=== PATIENT | male | born 1970 | race Two or more races ===

== ENCOUNTER 2025-08-05 12:42 | Emergency (ER) | payer MEDICAID ==
[~2025-08-05] VITALS: Ht 180.3 cm; Wt 72.0 kg
[2025-08-05 13:12] LABS: Hematocrit 41.0 % (41.0-53.0); Hemoglobin 14.1 g/dL (13.5-17.5); Mean Corpuscular Hemoglobin 30.2 pg (28.0-32.0); Mean Corpuscular Volume 87.8 fL (80.0-100.0); Nucleated Red Blood Cells % 0.1 %
[2025-08-05 13:17] LABS: Chloride 100 mmol/L (98-107); Potassium 3.8 mmol/L (3.5-5.1)
[2025-08-05 13:18] LABS: Anion Gap 9 (5-15); Carbon Dioxide 26 mmol/L (20-31)
[2025-08-05 13:22] LABS: Calcium 8.6 mg/dL (8.7-10.4); Sodium 135 mmol/L (136-145)
[2025-08-05 13:23] LABS: BUN/Creatinine Ratio 17.1 (10.0-20.0); Blood Urea Nitrogen 13 mg/dL (9-23); Glucose 114 mg/dL (74-106)
--- NOTE | 2025-08-05 13:23 | ED.PDOC ---
HPI Comments 55y M who presents to the ED for chief complaint of chest pain. Pt states he has been having chest pain for the past 2x days. Pt states his pain is substernal, constant, nonradiating, sharp in nature, rating the pain 9/10, with noted exacerbating pain with exertion and no relieving factors. Pt has associated nausea, chills, leg swelling, and shortness of breath. Pt states he otherwise has noted history of CHF and states is drug used with last use of Meth in the last 1x week with history of HIV. Pt has noted stable vitals in the ED. Pt denies any other symptoms. Chief Complaint: Chest Pain Time Seen by MD: 13:18 Reviewed Notes: Medications, Allergies Allergies: Coded Allergies: NO KNOWN ALLERGIES (Unverified , 08/05/25) Information Source: Patient Mode of Arrival: Ambulatory Brought in by: self Severity: Moderate Timing: Days Duration: Since onset Prehospital treatment: None Quality: Sharp Onset: At Rest, With Light Exertion Cardiac Risk Factors: None (CHF, ) PE Risk Factors: None History of: Similar pain in past Associated Signs and Symptoms: SOB, N/V, Other (leg swelling) Past Medical History PAST MEDICAL HISTORY: CHF, HIV Surgical History (Other): perforated ulcer Family History Family History: Reviewed,noncontributory to illness Social History Smoker: Cigarettes Alcohol: Unknown Drugs: Marijuana, Methamphetamine Lives In: Home Constitutional: reports: chills; denies: diaphoresis, fatigue, fever, malaise, sweats, weakness, others EENTM: denies: blurred vision, double vision, ear bleeding, ear discharge, ear drainage, ear pain, ear ringing, eye pain, eye redness, hearing loss, mouth pain, mouth swelling, nasal discharge, nose bleeding, nose congestion, nose pain, photophobia, tearing, throat pain, throat swelling, voice changes, others Respiratory: reports: shortness of breath; denies: cough, hemoptysis, ortho pnea, SOB at rest, SOB with excertion, stridor, wheezing, others Cardiovascular: reports: chest pain; denies: dizzy spells, diaphoresis, Dyspnea on exertion, edema, irregular heart beat, left arm pain, lightheadedness, palpitations, PND, syncope, others Gastrointestinal: reports: nausea, vomiting; denies: abdomen distended, abdominal pain, blood streaked bowels, constipated, diarrhea, dysphagia, diffic ulty swallowing, hematemesis, melena, poor appetite, poor fluid intake, rectal bleeding, rectal pain, others Genitourinary: denies: burning, dysuria, flank pain, frequency, hematuria, incontinence, penile discharge, penile sore, pain, testicle pain, testicle swelling, urgency, others Neurological: denies: dizziness, fainting, headache, left sided numbness, left sided weakness, numbness, paresthesia, pre-existing deficit, right sided numbness, right sided weakness, seizure, speech problems, tingling, tremors, weakness, others Musculoskeletal: denies: back pain, gout, joint pain, joint swelling, muscle pain, muscle stiffness, neck pain, others Integumetry: denies: bruises, change in color, change in hair/nails, dryness, laceration, lesions, lumps, rash, wounds, others Allergic/Immunocompromised: denies: Difficulty Healing, Frequent Infections, Hives, Itching, others Hematologic/Lymphatic: denies: anemia, blood clots, easy bleeding, easy bruising, swollen glands, others Endocrine: denies: excessive hunger, excessive sweating, excessive thirst, excessive urination, flushing, intolerance to cold, intolerance to heat, unexplained weight gain, unexplained weight loss, others Psychiatric: denies: anxiety, bipolar disorder, depression, hopeless, panic disorder, schizophrenia, sleepless, suicidal, others All Other Systems: Reviewed and Negative Physical Exam General Appearance: No Apparent Distress HEENT: Normal ENT Inspection, Pharynx Normal, TMs Normal Neck: Full Range of Motion, Non-Tender, Normal, Normal Inspection Respiratory: Chest Non-Tender, Lungs Clear, No Accessory Muscle Use, No Respiratory Distress, Normal Breath Sounds Cardiovascular: No Edema, No JVD, No Murmur, No Gallop, Normal Peripheral Puls es, Regular Rate/Rhythm Breast Exam: Deferred Gastrointestinal: No Organomegaly, Non Tender, No Pulsatile Mass, Normal Bowel Sounds, Soft Genitalia: Deferred Pelvic: Deferred Rectal: Deferred Extremities: No calf tenderness, Normal capillary refill, Normal inspection, Normal range of motion, Non-tender, No pedal edema Musculoskeletal : Apperance: Normal Neurologic: Alert, technical staff assistant II-XII nml as Tested, No Motor Deficits, Normal Affect, Normal Mood, No Sensory Deficits Cerebellar Function: Normal Reflexes: Normal Skin: Dry, Normal Color, Warm Lymphatic: No Adenopathy EKG EKG : Pulse Rate (adult): 74 Mustang: Normal Cardiac Rhythm: NSR Block: None Hypertrophy: None ST: Normal Was a procedure done? Was a procedure done?: No CP Differential Dx Differential Diagnosis: A-fib, A-Flutter, Angina, Anxiety / Panic Attack, Atrial Dysrhythmia, AV Block 1st Degree, Electrolyte Disorder, Heart Failure, Pulmonary Embolus, PVC's Differential Diagnosis: CHF Differential Diagnosis: Chest Wall Pain, Pericarditis, Pneumonia, Pulmonary Embolus X-Ray, Labs, Meds, VS Vital Signs Date Time Temp Pulse Resp B/P (MAP) Pulse Ox O2 Delivery O2 Flow Rate FiO2 08/05/25 13:45 71 08/05/25 13:23 74 08/05/25 12:45 97.8 72 20 101/65 97 97.8 Lab Test 08/05/25 13:50 08/05/25 12:54 Range/Units Troponin I High Sensitivity 5 5 </=54 ng/L White Blood Count 12.7 H 4.4-10.8 10^3/uL Red Blood Count 4.67 4.5-5.90 10^6/uL Hemoglobin 14.1 13.5-17.5 g/dL Hematocrit 41.0 41.0-53.0 % Mean Corpuscular Volume 87.8 80.0-100.0 fL Mean Corpuscular Hemoglobin 30.2 28.0-32.0 pg Mean Corpuscular Hemoglobin Concent 34.4 32.0-36.0 g/dL Red Cell Distribution Width 14.4 H 11.8-14.3 % Platelet Count 148 140-450 10^3/uL Mean Platelet Volume 8.1 6.9-10.8 fL Neutrophils (%) (Auto) 78.5 37.0-80.0 % Lymphocytes (%) (Auto) 11.2 10.0-50.0 % Monocytes (%) (Auto) 10.2 0.0-12.0 % Eosinophils (%) (Auto) 0.0 0.0-7.0 % Basophils (%) (Auto) 0.1 0.0-2.0 % Neutrophils # (Auto) 10.0 H 1.6-8.6 10 ^3/uL Lymphocytes # (Auto) 1.4 0.4-5.4 10 ^3/uL Monocytes # (Auto) 1.3 0-1.3 10 ^3/uL Eosinophils # (Auto) 0 0-0.8 10 ^3/uL Basophils # (Auto) 0 0-0.2 10 ^3/uL Nucleated Red Blood Cells 0.1 % Sodium Level 135 L 136-145 mmol/L Potassium Level 3.8 3.5-5.1 mmol/L Chloride Level 100 98-107 mmol/L Carbon Dioxide Level 26 20-31 mmol/L Anion Gap 9 5-15 Blood Urea Nitrogen 13 9-23 mg/dL Creatinine 0.76 0.700-1.30 mg/dL Glomerular Filtration Rate Calc 105 >90 mL/min BUN/Creatinine Ratio 17.1 10.0-20.0 Serum Glucose 114 H 74-106 mg/dL Calcium Level 8.6 L 8.7-10.4 mg/dL B-Type Natriuretic Peptide 20.37 0-100 pg/mL PROCEDURE(s): CXR2 - CHEST TWO VIEWS ROUTINE IMPRESSION: 1. No acute cardiopulmonary disease. The patient's CBC shows an elevated white blood cell count of 12.7 The rest of the CBC is within normal limits The chemistry panel is within normal limits The BNP is within normal limits The troponin level x2 is negative We feel that this patient's chest pain could be secondary to his methamphetamine use as well The patient will be discharged and will follow up with the primary care doctor The patient was given substance abuse counseling We did repeat serial EKG is which are within normal limits at this time Images Reviewed?: Images reviewed and evaluated by me Time of 1ST Reevaluation: 13:50 Reevaluation 1ST: Unchanged Patient Education/Counseling: Diagnosis, Treatment, Prognosis, Need For Follow Up Family Education/Counseling: No Family Present SEPSIS Sepsis Screen Date sepsis recognized/suspect: Aug 05, 2025 Time Sepsis recognized/suspect: 1245 Recent Procedure: No On Antibiotic Therapy: No Respiratory Rate >20: No Heart Rate >90: No Temp<36 C (96.8 F) or >38.3 C: No SBP <90 or MAP <65 mmHG: No New Acute Mental Status Change: No Is the patient on CPAP, BIPAP,: No Physician Orders Electrocardigram (08/05/25 12:50) Electrocardigram (08/05/25 13:50) Electrocardigram (08/05/25 15:50) Urinalysis (08/05/25 12:58) Heplock Iv (08/05/25 12:58) Pulse Oximetry (08/05/25 12:58) Activity Assistant (08/05/25 12:58) Blood Pressure (08/05/25 12:58) Chest Two Views Routine (08/05/25 12:58) Vital Signs Date Time Temp Pulse Resp B/P (MAP) Pulse Ox O2 Delivery O2 Flow Rate FiO2 08/05/25 13:45 71 08/05/25 13:23 74 08/05/25 12:45 97.8 72 20 101/65 97 97.8 Laboratory Tests Test 08/05/25 12:54 White Blood Count 12.7 10^3/uL (4.4-10.8) H Departure 1 Departure Time of Disposition: 16:24 Impression: Primary Impression: Acute chest pain Additional Impression: Methamphetamine abuse Disposition: HOME / SELF CARE / HOMELESS Condition: Fair Discharged With: Self Critical Care Note Critical Care Time?: No Stability Stability form required: No Heart Score Heart Score: Heart Score Response (Comments) Value History Slightly Suspicious 0 EKG Normal 0 Age 45-64 1 Risk Factors 1 or 2 risk factors 1 Troponin Normal limit 0 Total 2 I personally scribed for DIYA TRUJILLO MD ([email or web address]) on 08/05/25 at 13:23. Electronically submitted by Zelda Holcomb ([email or web address]). I personally scribed for DIYA TRUJILLO MD ([email or web address]) on 08/05/25 at 14:34. Electronically submitted by Zelda Holcomb ([email or web address]). I personally scribed for DIYA TRUJILLO MD ([email or web address]) on 08/05/25 at 15:38. Electronically submitted by Aishwarya Cross ([email or web address]). DIYA TRUJILLO MD Aug 05, 2025 13:23
--- NOTE | 2025-08-05 14:27 | DVH ---
XY CHEST TWO VIEWS ROUTINE CLINICAL HISTORY: sob COMPARISON: None TECHNIQUE: Frontal and lateral view of the chest was obtained FINDINGS: Lines and Tubes: None Lungs: No focal consolidation. Pleura: No effusion. No pneumothorax. Cardiomediastinal contours: Unremarkable Bones: No acute osseous abnormality. IMPRESSION: 1. No acute cardiopulmonary disease.
[2025-08-05] MEDS: FUROSEMIDE 40 MG/4 ML VIAL IV ONE (16:39)
[2025-08-05 16:55] VITALS: BP 111/65; PULSE 84; RESP 16; TEMP 98; O2SAT 97
--- NOTE | 2025-08-06 11:55 | ECG ---
[facility] Test Date: 2025-08-05 Test Time: 12:47:27 Pat Name: JAIRON HERNANDEZ Department: ED Room: Gender: M Sales Engagement Executive: JASON : 1970 Requested By: DIYA TRUJILLO Order Number: [id number] Reading MD: Sumit Vale Measurements Intervals [place] Rate: 74 P: 79 AR: 141 QRS: 88 QRSD: 93 T: 62 QT: 360 QTc: 400 Interpretive Statements Sinus rhythm Anteroseptal infarct, age indeterminate Electronically Signed On 08-06-2025 15:24:32 PDT by Sumit Vale Please click the below link to view image of tracing.
--- NOTE | 2025-08-07 09:03 | ECG ---
[facility] Test Date: 2025-08-05 Test Time: 15:40:05 Pat Name: JAIRON HERNANDEZ Department: ED Room: Gender: M Process Development Chemist: ANTON : 1970 Requested By: DIYA TRUJILLO Order Number: [id number] Reading MD: Sumit aVle Measurements Intervals [place] Rate: 80 P: 84 WI: 131 QRS: 103 QRSD: 94 T: 63 QT: 359 QTc: 415 Interpretive Statements Sinus rhythm Atrial premature complex Right atrial enlargement Right axis deviation Probable anteroseptal infarct, old Electronically Signed On 08-07-2025 9:04:55 PDT by Sumit Vale Please click the below link to view image of tracing.
--- NOTE | 2025-08-07 09:05 | ECG ---
[facility] Test Date: 2025-08-05 Test Time: 13:45:33 Pat Name: JAIRON HERNANDEZ Department: ED Room: Gender: M Hemstitcher: viji : 1970 Requested By: DIYA TRUJILLO Order Number: [id number] Reading MD: Sumit Vale Measurements Intervals [place] Rate: 71 P: 84 NC: 139 QRS: 101 QRSD: 88 T: 65 QT: 356 QTc: 387 Interpretive Statements Sinus rhythm Atrial premature complex Right axis deviation Probable anteroseptal infarct, old Electronically Signed On 08-07-2025 9:05:03 PDT by Sumit Vale Please click the below link to view image of tracing.
== END 2025-08-05 16:55 | disposition home or self-care (01) ==
LOC: ER 12:42
DX: R07.89 Other chest pain (principal); F15.10 Other stimulant abuse, uncomplicated; F17.210 Nicotine dependence, cigarettes, uncomplicated; F12.90 Cannabis use, unspecified, uncomplicated; I50.9 Heart failure, unspecified
CPT/HCPCS: 36415; 71046; 80048; 83880; 84484; 85025; 93005; 96374; 99285; J1938

== ENCOUNTER 2025-08-06 16:35 | Inpatient (IN) | payer MEDICAID ==
[~2025-08-06] VITALS: Ht 180.3 cm; Wt 68.0 kg
[2025-08-06 17:36] LABS: Hematocrit 26.9 % (41.0-53.0); Hemoglobin 9.2 g/dL (13.5-17.5); Mean Corpuscular Hemoglobin 29.7 pg (28.0-32.0); Mean Corpuscular Volume 87.4 fL (80.0-100.0); Nucleated Red Blood Cells % 0.0 %
[2025-08-06 17:55] LABS: Alanine Aminotransferase 16 U/L (7-40); Alkaline Phosphatase 50 U/L (46-116); Anion Gap 7 (5-15); BUN/Creatinine Ratio 29.5 (10.0-20.0); Carbon Dioxide 25 mmol/L (20-31); Chloride 99 mmol/L (98-107); Lipase 22 U/L (12-53); Potassium 4.3 mmol/L (3.5-5.1); Total Protein 6.3 g/dL (5.7-8.2)
[2025-08-06 17:56] LABS: Bilirubin, Total 0.6 mg/dL (0.2-1.0)
--- NOTE | 2025-08-06 18:21 | ED.PDOC ---
GI ASSESSMENT HPI Comments 55 y/o M, BIBA, with PMHx of peptic ulcers, DVT's, HIV, and hepatitis-C presents to the ED for CC of abdominal pain. EMS reports, patient is coming from home where he c/o diffuse abdominal pain x5adys. Patient further relays, to have associated melena which began x2days ago; describes bowel-movement to be "dark" and coffee ground in appearance. Patient comments, on having x3 syncopal episodes since, melena began. Patient endorses, that he takes Eliquis for PMHx of DVT's however, has not taken medication in x2days d/t melena. Patient denies nausea, vomiting, fatigue, weakness, or dizziness. No other associated symptoms or modifying factors are present at this time. Chief Complaint: Abdominal Pain Time Seen by MD: 17:35 Reviewed Notes: Nurses Notes, Industrial Robotics Mechanic Notes, Medications, Allergies Allergies: Coded Allergies: NO KNOWN ALLERGIES (Unverified , 08/05/25) Information Source: Patient, Emergency Med Personnel Mode of Arrival: EMS Timing: Days Duration: Since onset Prehospital treatment: None Stool: Other (dark, coffee ground apperance) Recent: None Recent Hx of: None Pain Location: Diffuse Modifying Factors: Nothing Associated sign and symptoms: Melena, Abdominal Pain, Faintness Past Medical History PAST MEDICAL HISTORY: CHF, HIV Past Medical History (Other): DVT's, Hepatitis C Surgical History: Denies all surgeries Family History Family History: Reviewed,noncontributory to illness Social History Smoker: Cigarettes Alcohol: Unknown Drugs: Marijuana, Methamphetamine Lives In: Home Constitutional: denies: chills, diaphoresis, fatigue, fever, malaise, sweats, weakness, others EENTM: denies: blurred vision, double vision, ear bleeding, ear discharge, ear drainage, ear pain, ear ringing, eye pain, eye redness, hearing loss, mouth pain, mouth swelling, nasal discharge, nose bleeding, nose congestion, nose pain, photophobia, tearing, throat pain, throat swelling, voice changes, others Respiratory: denies: cough, hemoptysis, orthopnea, SOB at rest, shortness of breath, SOB with excertion, stridor, wheezing, others Cardiovascular: denies: chest pain, dizzy spells, diaphoresis, Dyspnea on exertion, edema, irregular heart beat, left arm pain, lightheadedness, palpitations, PND, syncope, others Gastrointestinal: reports: abdominal pain, melena; denies: abdomen distended, blood streaked bowels, constipated, diarrhea, dysphagia, difficulty swallowing, hematemesis, nausea, poor appetite, poor fluid intake, rectal bleeding, rectal pain, vomiting, others Genitourinary: denies: burning, dysuria, flank pain, frequency, hematuria, incontinence, penile discharge, penile sore, pain, testicle pain, testicle swelling, urgency, others Neurological: reports: fainting; denies: dizziness, headache, left sided numbness, left sided weakness, numbness, paresthesia, pre-existing deficit, right sided numbness, right sided weakness, seizure, speech problems, tingling, tremors, weakness, others Musculoskeletal: denies: back pain, gout, joint pain, joint swelling, muscle pain, muscle stiffness, neck pain, others Integumetry: denies: bruises, change in color, change in hair/nails, dryness, laceration, lesions, lumps, rash, wounds, others Allergic/Immunocompromised: denies: Difficulty Healing, Frequent Infections, Hives, Itching, others Hematologic/Lymphatic: denies: anemia, blood clots, easy bleeding, easy bruising, swollen glands, others Endocrine: denies: excessive hunger, excessive sweating, excessive thirst, excessive urination, flushing, intolerance to cold, intolerance to heat, unexplained weight gain, unexplained weight loss, others Psychiatric: denies: anxiety, bipolar disorder, depression, hopeless, panic disorder, schizophrenia, sleepless, suicidal, others All Other Systems: Reviewed and Negative Physical Exam General Appearance: Moderate Distress, Normal HEENT: Normal ENT Inspection, Pharynx Normal Neck: Full Range of Motion, Non-Tender, Normal, Normal Inspection Respiratory: Chest Non-Tender, Lungs Clear, No Accessory Muscle Use, No Respiratory Distress, Normal Breath Sounds Cardiovascular: No Edema, No Murmur, No Gallop, Normal Peripheral Pulses, Regular Rate/Rhythm Breast Exam: Deferred Gastrointestinal: Diffuse, No Organomegaly, No Pulsatile Mass, Normal Bowel Sounds, Soft, Tenderness (abdominal) Genitalia: Deferred Pelvic: Deferred Rectal: Deferred Extremities: No calf tenderness, Normal capillary refill, Normal inspection, Normal range of motion, Non-tender, No pedal edema Musculoskeletal : Apperance: Normal Neurologic: Alert, manager new product II-XII nml as Tested, No Motor Deficits, Normal Affect, Normal Mood, No Sensory Deficits Cerebellar Function: Normal Reflexes: Normal Skin: Dry, Normal Color, Warm Lymphatic: No Adenopathy Was a procedure done? Was a procedure done?: No GI differential Dx Differential Diagnosis: Diverticular disease, GI hemorrhage, Inflammatory BD X-Ray, Labs, Meds, VS Vital Signs Date Time Temp Pulse Resp B/P (MAP) Pulse Ox O2 Delivery O2 Flow Rate FiO2 08/06/25 16:45 98.1 108 18 109/68 95 98.1 Lab Test 08/06/25 17:23 Range/Units White Blood Count 16.0 #H 4.4-10.8 10^3/uL Red Blood Count 3.08 L 4.5-5.90 10^6/uL Hemoglobin 9.2 #L 13.5-17.5 g/dL Hematocrit 26.9 #L 41.0-53.0 % Mean Corpuscular Volume 87.4 80.0-100.0 fL Mean Corpuscular Hemoglobin 29.7 28.0-32.0 pg Mean Corpuscular Hemoglobin Concent 34.0 32.0-36.0 g/dL Red Cell Distribution Width 13.8 11.8-14.3 % Platelet Count 196 140-450 10^3/uL Mean Platelet Volume 8.1 6.9-10.8 fL Neutrophils (%) (Auto) 74.2 37.0-80.0 % Lymphocytes (%) (Auto) 12.1 10.0-50.0 % Monocytes (%) (Auto) 13.5 H 0.0-12.0 % Eosinophils (%) (Auto) 0.0 0.0-7.0 % Basophils (%) (Auto) 0.2 0.0-2.0 % Neutrophils # (Auto) 11.8 H 1.6-8.6 10 ^3/uL Lymphocytes # (Auto) 1.9 0.4-5.4 10 ^3/uL Monocytes # (Auto) 2.2 H 0-1.3 10 ^3/uL Eosinophils # (Auto) 0 0-0.8 10 ^3/uL Basophils # (Auto) 0 0-0.2 10 ^3/uL Nucleated Red Blood Cells 0.0 % D-Dimer, Quantitative 1.24 H 0.0-0.49 mg/L FEU Sodium Level 131 L 136-145 mmol/L Potassium Level 4.3 3.5-5.1 mmol/L Chloride Level 99 98-107 mmol/L Carbon Dioxide Level 25 20-31 mmol/L Anion Gap 7 5-15 Blood Urea Nitrogen 23 # 9-23 mg/dL Creatinine 0.78 0.700-1.30 mg/dL Glomerular Filtration Rate Calc 105 >90 mL/min BUN/Creatinine Ratio 29.5 H 10.0-20.0 Serum Glucose 115 H 74-106 mg/dL Calcium Level 8.0 L 8.7-10.4 mg/dL Total Bilirubin 0.6 0.2-1.0 mg/dL Aspartate Amino Transferase (AST) 14 13-40 U/L Alanine Aminotransferase (ALT) 16 7-40 U/L Alkaline Phosphatase 50 46-116 U/L Total Protein 6.3 5.7-8.2 g/dL Albumin 3.2 3.2-4.8 g/dL Lipase 22 12-53 U/L [place] [id number] Ph: [phone] DIAGNOSTIC IMAGING Diagnostic Imaging Report : [id number] Signed PATIENT: ESA HERNANDEZACCT: [id number] UNIT: [id number] : 1970 LOC: ER ROOM / BED: / AGE / SEX: 55 / M ADM STATUS: REG ER SERVICE [id number] ORDERING PHYSICIAN: CHARLES MALDONADO PROCEDURE(s): ABPL - CT AB PEL WO CON-NO ORAL OR IV REASON: abd pain ORDER NUMBER(s): [id number], ACCESSION NUMBER(s): [id number] COMPUTERIZED TOMOGRAPHY ABDOMEN AND PELVIS WITHOUT CONTRAST REASON FOR EXAM: abd pain COMPARISON: None TECHNIQUE: Spiral scans were acquired from the diaphragm to the symphysis pubis without intravenous contrast administration. 2-D coronal and sagittal reformatted images were provided. Radiation optimization: All CT scans at this facility use at least one of these dose optimization techniques: Automated exposure control mA and/or kV adjustment per patient size (includes targeted exams where dose is matched to clinical indication) or iterative reconstruction. RADIATION DOSE: CTDI: 10 mGy DLP: 495 mGy-cm FINDINGS: There is scattered mucous plugging at the visualized lung bases. There is no pleural effusion. Evaluation of the abdomen and pelvis is degraded by streak artifact from the patient's arms. The spleen is not enlarged. The liver is grossly normal in size and contour. Evaluation of the abdominal organs is suboptimal in the absence of intravenous contrast. No calcified gallstone is identified. Unenhanced appearance of the pancreas is unremarkable. The adrenal glands are normal. The kidneys are similar in size. There is no hydronephrosis of either kidney. The urinary bladder is decompressed and is not well evaluated. The prostate and seminal vesicles are within normal limits. The colonic stool burden is small. The appendix is normal. There is no pathologic distention of the small bowel. No free fluid is identified in the abdomen or pelvis. There is no pathologic lymphadenopathy by size criteria. There is no abdominal aortic aneurysm. No acute osseous abnormality is identified. IMPRESSION: Normal appendix. No calcified gallstone identified. No evidence of bowel obstruction. No acute abdominal or pelvic abnormality is identified on this noncontrast study to explain the patient's pain. Scattered mucous plugging of the visualized lung bases. ATED BY: ESA SILVA MD DICTATED DATE/TIME: 08/06/251839 SIGNED BY: ESA SILVA MD SIGNED DATE/TIME: 08/06/251839 CC: X-Ray, Labs, Meds, VS Comment Patient will be admitted for intractable abdominal pain Patient shows signs of elevated white count and chronic blood loss anemia Recommend GI consult in the morning Patient currently hemodynamically stable Prior charts and visits reviewed Time of 1ST Reevaluation: 18:05 Reevaluation 1ST: Unchanged Patient Education/Counseling: Diagnosis, Treatment Family Education/Counseling: No Family Present SEPSIS Sepsis Screen Date sepsis recognized/suspect: Aug 06, 2025 Time Sepsis recognized/suspect: 1640 Recent Procedure: No On Antibiotic Therapy: No Respiratory Rate >20: No Heart Rate >90: Yes Temp<36 C (96.8 F) or >38.3 C: No SBP <90 or MAP <65 mmHG: No New Acute Mental Status Change: No Is the patient on CPAP, BIPAP,: No Physician Orders Ct Ab Pel Wo Con-No Oral Or Iv (08/06/25 16:57) Drug Screen (08/06/25 16:57) Urinalysis (08/06/25 16:57) Type And Screen (08/06/25 16:57) Vital Signs Date Time Temp Pulse Resp B/P (MAP) Pulse Ox O2 Delivery O2 Flow Rate FiO2 08/06/25 16:45 98.1 108 18 109/68 95 98.1 Laboratory Tests Test 08/06/25 17:23 White Blood Count 16.0 10^3/uL (4.4-10.8) #H Departure 1 Departure Time of Disposition: 18:52 Impression: Primary Impression: Peptic ulcer with perforation and obstruction Additional Impressions: Melena Intractable abdominal pain Disposition: ADMITTED INPATIENT Condition: Stable Discharged With: Self Critical Care Note Critical Care Time?: No Stability Stability form required: No Heart Score Heart Score: Heart Score Response (Comments) Value History N/A 0 EKG N/A 0 Age N/A 0 Risk Factors N/A 0 Troponin N/A 0 Total 0 I personally scribed for MALDONADO,CHRISTOPHER E CELL ASSEMBLY PINNER ([email or web address]) on 08/06/25 at 18:21. Electronically submitted by Amaya Marina (Quisk). I personally scribed for MALDONADO,CHRISTOPHER E CELL ASSEMBLY PINNER ([email or web address]) on 08/06/25 at 18:39. Electronically submitted by Amaya Marina (Quisk). I personally scribed for MALDONADO,CHRISTOPHER E CELL ASSEMBLY PINNER ([email or web address]) on 08/06/25 at 18:49. Electronically submitted by Amaya Marina (Quisk). MALDONADO,CHRISTOPHER E CELL ASSEMBLY PINNER Aug 06, 2025 18:21
[2025-08-06 18:37] LABS: Albumin 3.2 g/dL (3.2-4.8); Blood Urea Nitrogen 23 mg/dL (9-23); Calcium 8.0 mg/dL (8.7-10.4); Glucose 115 mg/dL (74-106); Sodium 131 mmol/L (136-145)
--- NOTE | 2025-08-06 18:43 | DVH ---
COMPUTERIZED TOMOGRAPHY ABDOMEN AND PELVIS WITHOUT CONTRAST REASON FOR EXAM: abd pain COMPARISON: None TECHNIQUE: Spiral scans were acquired from the diaphragm to the symphysis pubis without intravenous c ontrast administration. 2-D coronal and sagittal reformatted images were provided. Radiation optimiza tion: All CT scans at this facility use at least one of these dose optimization techniques: Automated exposure control mA and/or kV adjustment per patient size (includes targeted exams where dose is mat ched to clinical indication) or iterative reconstruction. RADIATION DOSE: CTDI: 10 mGy DLP: 495 mGy-cm FINDINGS: There is scattered mucous plugging at the visualized lung bases. There is no pleural effusion. Evaluation of the abdomen and pelvis is degraded by streak artifact from the patient's arms. The sple en is not enlarged. The liver is grossly normal in size and contour. Evaluation of the abdominal orga ns is suboptimal in the absence of intravenous contrast. No calcified gallstone is identified. Unenha nced appearance of the pancreas is unremarkable. The adrenal glands are normal. The kidneys are simil ar in size. There is no hydronephrosis of either kidney. The urinary bladder is decompressed and is n ot well evaluated. The prostate and seminal vesicles are within normal limits. The colonic stool bur den is small. The appendix is normal. There is no pathologic distention of the small bowel. No free f luid is identified in the abdomen or pelvis. There is no pathologic lymphadenopathy by size criteria . There is no abdominal aortic aneurysm. No acute osseous abnormality is identified. IMPRESSION: Normal appendix. No calcified gallstone identified. No evidence of bowel obstruction. No acute abdo marcin or pelvic abnormality is identified on this noncontrast study to explain the patient's pain. Scattered mucous plugging of the visualized lung bases.
[2025-08-06] MEDS: ONDANSETRON HCL 4 MG/2 ML VIAL IV ONE (19:00)
[2025-08-06 20:14] VITALS: PULSE 109; RESP 18; O2SAT 98
[2025-08-06] MEDS: MORPHINE SULFATE 4 MG/ML SYR/VIAL IV ONE (20:25)
[2025-08-06] MEDS: SODIUM CHLORIDE 0.9% 1,000 ML IV SCH (20:30)
[2025-08-06] MEDS ORDERED: NITROGLYCERIN 0.4 MG SL TAB SL PRN (20:30)
[2025-08-06] MEDS ORDERED: MORPHINE SULFATE INJ 2 MG/ml SYRG IV PRN (20:30)
[2025-08-06] MEDS: HYDROcodone-ACET 5/325MG TAB PO ONE (20:33)
[2025-08-06] MEDS: PANTOPRAZOLE 40 MG/10 ML VIAL INJ IV SCH (22:00)
[2025-08-06 22:52] VITALS: PULSE 86; RESP 14; O2SAT 97
[2025-08-07] VITALS (9 sets, daily range): BP systolic 96–106; BP diastolic 59–65; PULSE 82–98; RESP 15–25; TEMP 98.3–100.1; O2SAT 94–100
[2025-08-07 03:08] LABS: Urine Protein, UAD Negative (Negative)
[2025-08-07 03:21] LABS: Amphetamine Screen, Urine Neg (NEGATIVE); Barbiturate Scree,Urine Neg (NEGATIVE); Benzodiazephine Screen, Urine Neg (NEGATIVE); Opiate Scree,Urine Neg (NEGATIVE); Phencyclidine Screen, Urine Neg (NEGATIVE)
[2025-08-07 03:22] LABS: Cannabinoid Screen, Urine Neg (NEGATIVE); Cocaine Screen, Urine Neg (NEGATIVE)
[2025-08-07 06:07] LABS: Hematocrit 22.8 % (41.0-53.0); Hemoglobin 7.9 g/dL (13.5-17.5); Nucleated Red Blood Cells % 0.0 %
[2025-08-07 06:09] LABS: Mean Corpuscular Hemoglobin 30.4 pg (28.0-32.0); Mean Corpuscular Volume 88.3 fL (80.0-100.0)
[2025-08-07 06:26] LABS: Alanine Aminotransferase 13 U/L (7-40); Alkaline Phosphatase 49 U/L (46-116); Anion Gap 8 (5-15); BUN/Creatinine Ratio 22.1 (10.0-20.0); Blood Urea Nitrogen 15 mg/dL (9-23); Carbon Dioxide 24 mmol/L (20-31); Chloride 98 mmol/L (98-107); Potassium 3.9 mmol/L (3.5-5.1); Total Protein 6.0 g/dL (5.7-8.2)
[2025-08-07 06:27] LABS: Bilirubin, Total 0.6 mg/dL (0.2-1.0)
[2025-08-07 06:31] LABS: Albumin 3.0 g/dL (3.2-4.8); Calcium 8.1 mg/dL (8.7-10.4); Glucose 127 mg/dL (74-106); Sodium 130 mmol/L (136-145)
[2025-08-07] MEDS: MORPHINE SULFATE INJ 2 MG/ml SYRG IV PRN (08:13)
--- NOTE | 2025-08-07 11:23 | DVHPN2 ---
Progress Note - Dictate Date Seen: Aug 07, 2025 Medical Necessity Reason Pt with a Central, PICC or Fol: No vital signs Vital Sign Date Time Temp Pulse Resp B/P (MAP) Pulse Ox O2 Delivery O2 Flow Rate FiO2 08/07/25 09:50 94 22 117/58 08/07/25 08:00 100 Room Air* 0 21 08/07/25 08:00 98.2 98.2 Total Intake and Output 08/06/25 08/06/25 08/07/25 15:00 23:00 07:00 Intake Total 60 ml 240 ml Balance 60 ml 240 ml medications Current Medications Medications Dose Ordered Sig/Adri Route Start Time Stop Time Status Last Admin Dose Admin Sodium Chloride 1,000 ml @ 60 mls/hr [id number] IV 08/06/25 20:30 08/06/25 20:30 Acetaminophen 325 mg Q4HP PRN PO 08/06/25 20:30 Ondansetron HCl 4 mg Q4HP PRN IV 08/06/25 20:30 Morphine Sulfate 2 mg Q4HPRN PRN IV 08/06/25 20:30 08/07/25 08:13 Nitroglycerin 0.4 mg Q5MINP PRN SL 08/06/25 20:30 Morphine Sulfate 2 mg Q30M PRN IV 08/06/25 20:30 Pantoprazole Sodium 40 mg BID IV 08/06/25 22:00 08/07/25 10:05 objective General Appearance: alert, no distress HEENT: EOMI, PERRLA, normal external inspect of ears, no icterus, no nasal drainage Neck: no carotid bruit, no jugular venous distention (JVD), no lymphadenopathy Chest: normal thorax Respiratory: clear to auscultation, normal air movement Cardiovascular: regular rate and rhythm, no diastolic murmur, no jugular venous distention (JVD), no rub, no systolic murmur Abdominal: soft, no hepatomegaly, no mass, no splenomegaly, no tenderness Genitourinary: grossly normal external Musculoskeletal: no joint tenderness, no swelling Extremities: normal pulses, no calf tenderness, no clubbing, no cyanosis, no edema Skin: no bruising, no jaundice, no rash Neurological: alert, No focal deficit laboratory and microbiology Laboratory Tests 08/07/25 05:00 Test 08/07/25 05:00 Range/Units Serum Glucose 127 H 74-106 mg/dL Problem List 1. Syncope Monitor 2. GI bleed Monitor, NPO, GI consult, IV fluids, transfuse if hgb < 7, PPT/INR, blood culture 3. HIV Monitor, chest XR 4. Hepatitis C Monitor 5. Chronic anticoagulation Monitor, SCD 6. Hx DVT Monitor, SCD 7. Hyponatremia Monitor 8. Leukocytosis Monitor Assessment/Plan Subjective: Patient is awake and alert. Objective: Patient is complaining of right foot pain and reports having a fall prior to hospital admission. He was admitted for a GI bleed and is found to be anemic. Repeat CBC is pending. Past medical history is significant for HIV and hepatitis C. Plan: Patient was seen by GI, and an endoscopy is planned. Keep patient NPO. Continue IV fluids and transfuse if hemoglobin is less than 7. Plan discussed with: Patient, Other MICHELLE LAYTON NP Aug 07, 2025 11:23
--- NOTE | 2025-08-07 11:23 | DVHHP2 ---
Admitting Diagnosis: Abdominal pain History of Present Illness 55 yo male patient with hx of DVT on Eliquis , HIV, Hepatitis C c/o abdominal pain x 5 days with associated coffee ground like melena x 2 days. Patient report shaving 3 syncopal episodes since bowel changes started. Patient has stopped hsi eliquis for 2 days. While in the emergency department the patient was evaluated by the provider, As per provider: Labs, vital signs, and imagining monitored. Patient will be admitted for further evaluation and treatment. I discussed admission with the patient/family and is in agreement to treatment plan. Allergies: Coded Allergies: NO KNOWN ALLERGIES (Unverified , 08/05/25) Current Medications Current Medications Medications (Trade) Dose Ordered Sig/Adri Route PRN Reason Start Time Stop Time Status Last Admin Pantoprazole Sodium (Protonix) 40 mg BID IV 08/06/25 22:00 08/07/25 10:05 Ceftriaxone Sodium 50 ml @ 100 mls/hr DAILY@09 IV 08/07/25 11:30 08/07/25 12:22 Hydromorphone HCl (Dilaudid Injection) 0.4 mg Q4HP PRN IV PAIN SCALE 7 THRU 10 08/07/25 12:00 Sucralfate (Carafate Susp) 1 gm BID@0600,2200 PO 08/07/25 22:00 Review of Systems Constitutional: denies chills, denies fever, denies malaise Eyes: denies eye pain, denies vision change ENT: denies ear pain, denies headache, denies nasal congestion, denies painful swallowing, denies voice change Cardiovascular: denies chest pain, denies edema, denies orthopnea, denies palpitations, denies paroxysmal nocturnal dyspnea Respiratory: denies cough, denies shortness of breath Gastrointestinal: denies constipation, denies diarrhea, denies nausea, denies vomiting Genitourinary: denies dysuria, denies frequent urination, denies urethral discharge Musculoskeletal: denies back pain, denies joint pain, denies muscle pain Skin: denies bruising, denies itching, denies rash Neurological: denies focal weakness, denies headache, denies sensory changes Psychiatric: denies anxiety, denies depression Endocrine: denies polydipsia, denies polyuria Hematologic/Lymphatic: denies easy bleeding, denies easy bruising, denies enlarged lymph nodes Allergic/Immunologic: denies allergy, denies hives Vital Signs Vital Signs Date Time Temp Pulse Resp B/P (MAP) Pulse Ox O2 Delivery O2 Flow Rate FiO2 08/07/25 17:20 95 19 97 Room Air* 0 21 08/07/25 17:17 100.1 96/61 (73) 100.1 Physical Exam General Appearance: alert, no distress HEENT: EOMI, PERRLA, normal external inspect of ears, no icterus, no nasal drainage Neck: no carotid bruit, no jugular venous distention (JVD), no lymphadenopathy Chest: normal thorax Respiratory: clear to auscultation, normal air movement Cardiovascular: regular rate and rhythm, no diastolic murmur, no jugular venous distention (JVD), no rub, no systolic murmur Abdominal: soft, no hepatomegaly, no mass, no splenomegaly, no tenderness Genitourinary: grossly normal external Musculoskeletal: no joint tenderness, no swelling Extremities: normal pulses, no calf tenderness, no clubbing, no cyanosis, no edema Skin: no bruising, no jaundice, no rash Neurological: alert, No focal deficit SEPSIS Sepsis Screen Date sepsis recognized/suspect: Aug 07, 2025 Time Sepsis recognized/suspect: 0800 Recent Procedure: No On Antibiotic Therapy: No Respiratory Rate >20: No Heart Rate >90: No Temp<36 C (96.8 F) or >38.3 C: No SBP <90 or MAP <65 mmHG: No New Acute Mental Status Change: No Is the patient on CPAP, BIPAP,: No Physician Orders Ct Ab Pel Wo Con-No Oral Or Iv (08/06/25 16:57) Admit (08/06/25 20:28) Sodium Chloride 0.9% (08/06/25 20:30) Nitroglycerin Sublingual (Ntrostat Subli (08/06/25 20:30) Stat Ekg For Chest Pain (08/06/25 20:28) Notify Md Of Changes From Base (08/06/25 20:28) Establishment Guide For 24 Hours (08/06/25 20:28) Emergency Dysrhythmia Protocol (08/06/25 20:28) Rhythm Strips Once Every Shift (08/06/25 20:28) Oxygen By Nasal Cannula (08/06/25 20:28) Acetaminophen Tablet (Tylenol Tablet) (08/06/25 20:30) Ondansetron Hcl (Zofran) (08/06/25 20:30) Pantoprazole (Protonix) (08/06/25 22:00) * Gi Dvh Telephonic Rn (08/06/25 20:30) Chest Xray 1 View (08/07/25 11:24) Ceftriaxone 1gm/50ml (Rocephin) (08/07/25 11:30) Blood Culture (08/07/25 11:24) Sequential Compression Device (08/07/25 11:26) Obtain Consent For: (08/07/25 11:41) Obtain Consent For Anesthesia (08/07/25 11:41) Hydromorphone Injection (Dilaudid Inject (08/07/25 12:00) R Foot 3 View Xray (08/07/25 11:52) R Ankle 2 View Xray (08/07/25 11:52) Full Liq Diet (08/07/25 Dinner) Sucralfate Susp (Carafate Susp) (08/07/25 22:00) Hepatitis B Surface Antigen (08/07/25 17:42) * Labor Law Professor Consult (08/07/25 17:42) Vital Signs Date Time Temp Pulse Resp B/P (MAP) Pulse Ox O2 Delivery O2 Flow Rate FiO2 08/07/25 17:20 95 19 97 Room Air* 0 21 08/07/25 17:17 100.1 95 19 96/61 (73) 97 100.1 08/07/25 14:05 100.1 95 19 96/61 (73) 97 100.1 08/07/25 14:05 100.1 95 19 96/61 (73) 97 100.1 08/07/25 13:00 100 17 117/58 (77) 100 08/07/25 10:00 80 18 100 08/07/25 09:50 94 22 117/58 08/07/25 08:13 90 27 109/51 08/07/25 08:00 82 25 100 Room Air* 0 21 08/07/25 08:00 98.2 82 25 109/51 (70) 100 98.2 08/07/25 06:13 94 19 106/65 (79) 100 08/07/25 04:27 91 08/07/25 01:00 85 12 106/66 (79) 97 08/07/25 00:00 82 08/06/25 22:52 86 14 97 Nasal Cannula* 4 36 08/06/25 22:30 99.0 86 14 100/72 (81) 97 99.0 08/06/25 20:14 98.1 109 18 110/77 (88) 95 98.1 08/06/25 20:14 109 18 98 Room Air* 0 21 08/06/25 16:45 98.1 108 18 109/68 95 98.1 Laboratory Tests Test 08/06/25 17:23 08/07/25 05:00 08/07/25 13:09 White Blood Count 16.0 10^3/uL (4.4-10.8) #H 12.6 10^3/uL (4.4-10.8) H 11.6 10^3/uL (4.4-10.8) H Medications Medications Dose Ordered Sig/Adri Route Start Time Stop Time Status Last Admin Dose Admin Ceftriaxone Sodium 50 ml @ 100 mls/hr DAILY@09 IV 08/07/25 11:30 08/07/25 12:22 Results Labs Test 08/07/25 13:09 08/07/25 05:00 08/07/25 02:30 08/06/25 17:23 Range/Units White Blood Count 11.6 H 4.4-10.8 10^3/uL Red Blood Count 2.48 L 4.5-5.90 10^6/uL Hemoglobin 7.4 L 13.5-17.5 g/dL Hematocrit 21.7 L 41.0-53.0 % Mean Corpuscular Volume 87.4 80.0-100.0 fL Mean Corpuscular Hemoglobin 29.6 28.0-32.0 pg Mean Corpuscular Hemoglobin Concent 33.9 32.0-36.0 g/dL Red Cell Distribution Width 13.7 11.8-14.3 % Platelet Count 182 140-450 10^3/uL Mean Platelet Volume 7.7 6.9-10.8 fL Neutrophils (%) (Auto) 68.6 37.0-80.0 % Lymphocytes (%) (Auto) 15.0 10.0-50.0 % Monocytes (%) (Auto) 16.2 H 0.0-12.0 % Eosinophils (%) (Auto) 0.1 0.0-7.0 % Basophils (%) (Auto) 0.1 0.0-2.0 % Neutrophils # (Auto) 7.9 1.6-8.6 10 ^3/uL Lymphocytes # (Auto) 1.7 0.4-5.4 10 ^3/uL Monocytes # (Auto) 1.9 H 0-1.3 10 ^3/uL Eosinophils # (Auto) 0 0-0.8 10 ^3/uL Basophils # (Auto) 0 0-0.2 10 ^3/uL Nucleated Red Blood Cells 0.0 % Prothrombin Time 10.3 9.3-11.8 sec Prothrombin Time INR 0.97 0.9-1.15 Sodium Level 130 L 136-145 mmol/L Potassium Level 3.9 3.5-5.1 mmol/L Chloride Level 98 98-107 mmol/L Carbon Dioxide Level 24 20-31 mmol/L Anion Gap 8 5-15 Blood Urea Nitrogen 15 9-23 mg/dL Creatinine 0.68 L 0.700-1.30 mg/dL Glomerular Filtration Rate Calc 109 >90 mL/min BUN/Creatinine Ratio 22.1 H 10.0-20.0 Serum Glucose 127 H 74-106 mg/dL Calcium Level 8.1 L 8.7-10.4 mg/dL Total Bilirubin 0.6 0.2-1.0 mg/dL Aspartate Amino Transferase (AST) 14 13-40 U/L Alanine Aminotransferase (ALT) 13 7-40 U/L Alkaline Phosphatase 49 46-116 U/L Total Protein 6.0 5.7-8.2 g/dL Albumin 3.0 L 3.2-4.8 g/dL Urine Color Light-yellow Yellow Urine Clarity Clear Clear Urine pH 5.5 5.0-9.0 Urine Specific [place] 1.015 1.001-1.035 Urine Protein Negative Negative Urine Ketones Negative Negative Urine Blood Trace H Negative /uL Urine Nitrite Negative Negative Urine Bilirubin Negative Negative Urine Urobilinogen Normal Negative mg/dL Urine Leukocyte Esterase Negative Negative /uL Urine RBC 1 0 - 3 /hpf Urine Microscopic WBC 1 0-3 /HPF Urine Squamous Epithelial Cells None seen <5 /hpf Urine Bacteria None seen None Seen /hpf Urine Glucose Normal Normal mg/dL Urine Opiates Screen Neg NEGATIVE Urine Fentanyl Screen Neg NEGATIVE Urine Barbiturates Screen Neg NEGATIVE Urine Phencyclidine Screen Neg NEGATIVE Urine Amphetamines Screen Neg NEGATIVE Urine Benzodiazepines Screen Neg NEGATIVE Urine Cocaine Screen Neg NEGATIVE Urine Cannabinoids Screen Neg NEGATIVE D-Dimer, Quantitative 1.24 H 0.0-0.49 mg/L FEU Lipase 22 12-53 U/L Plan 1. Syncope Monitor 2. GI bleed Monitor, NPO, GI consult, IV fluids, transfuse if hgb < 7, PPT/INR, blood culture 3. HIV Monitor, chest XR 4. Hepatitis C Monitor 5. Chronic anticoagulation Monitor, SCD 6. Hx DVT Monitor, SCD 7. Hyponatremia Monitor 8. Leukocytosis Monitor Plan discussed with: Patient, Other MICHELLE LAYTON NP Aug 07, 2025 11:23
--- NOTE | 2025-08-07 12:02 | ECG ---
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
--- NOTE | 2025-08-07 12:13 | DVH ---
CHEST RADIOGRAPH Indication: leukocytosis Technique: Single frontal view of the chest was obtained Comparison: XY CHEST TWO VIEWS ROUTINE on DOS: 08/05/25 FINDINGS: Lines and Tubes: None Lungs: No focal consolidation. Pleura: No effusion. No pneumothorax. Cardiomediastinal contours: Unremarkable Bones: No acute osseous abnormality. IMPRESSION: 1. No acute cardiopulmonary disease.
--- NOTE | 2025-08-07 12:53 | DVH ---
CLINICAL INDICATION: pain TECHNIQUE: 2 radiographic views of the right ankle were obtained. Comparison: XY R FOOT 3 VIEW XRAY on DOS: 08/07/25 FINDINGS/IMPRESSION: There is no evidence of acute fracture or dislocation. The visualized joint space is well maintained. The alignment is anatomical. There is no radiopaque foreign body.
--- NOTE | 2025-08-07 12:53 | DVH ---
CLINICAL INDICATION: pain TECHNIQUE: 3 radiographic views of the right foot were obtained. Comparison: XY R ANKLE 2 VIEW XRAY on DOS: 08/07/25 FINDINGS/IMPRESSION: There is no evidence of acute fracture or dislocation. The visualized joint space is well maintained. The alignment is anatomical. There is no radiopaque foreign body.
--- NOTE | 2025-08-07 13:06 | DVHINCON2 ---
GI Consult Consult Note GI consult note Date of Consultation: 08/07/2025 Chief Complaint: GI bleed Referring Physician: Dr. Mathur H&P: 55-year-old male admitted with complains of abdominal pain mostly in periumbilical to epigastric area for the last 3-4 days. Patient also having nausea and vomiting, unsure of any hematemesis. Last bowel movement one day ago which was dark and lack coffee-grounds. Patient also had three episodes of syncope since melena started. Diagnosed with DVTs in 2018 and usually takes Eliquis which he has stopped taking two days ago. Patient is status post abdominal surgery for perforated ulcer in 2016. Patient is complaining of ankle pain and swelling Past Medical History: CHF, HIV, DVT, hepatitis-C Past Surgical History: Perforated ulcer abdominal surgery Social History: Smoker: Cigarettes Alcohol: Unknown Drugs: Marijuana, Methamphetamine Lives In: Home Family History: Noncontributory Review of Systems: Constitutional: no fever, chill, weight loss HEENT: no eye pain, no hearing loss, no oral lesion, no scleral icterus Heart: no chest pain, no chest pressure Lung: no cough, no dyspnea with exertion Abdomen: see HPI Musculoskeletal: Ankle pain Physical exam: General: NAD, AAOX3 Chest: lung osman clear to auscultation Heart: RRR, no murmur Abdomen: non-distended,+ upper abdomen tenderness to palpation, +BS Labs: Labs Test 08/07/25 05:00 08/07/25 02:30 08/06/25 17:23 Range/Units White Blood Count 12.6 H 4.4-10.8 10^3/uL Red Blood Count 2.58 L 4.5-5.90 10^6/uL Hemoglobin 7.9 L 13.5-17.5 g/dL Hematocrit 22.8 #L 41.0-53.0 % Mean Corpuscular Volume 88.3 80.0-100.0 fL Mean Corpuscular Hemoglobin 30.4 28.0-32.0 pg Mean Corpuscular Hemoglobin Concent 34.5 32.0-36.0 g/dL Red Cell Distribution Width 14.0 11.8-14.3 % Platelet Count 185 140-450 10^3/uL Mean Platelet Volume 8.1 6.9-10.8 fL Neutrophils (%) (Auto) 74.9 37.0-80.0 % Lymphocytes (%) (Auto) 12.0 10.0-50.0 % Monocytes (%) (Auto) 13.0 H 0.0-12.0 % Eosinophils (%) (Auto) 0.0 0.0-7.0 % Basophils (%) (Auto) 0.1 0.0-2.0 % Neutrophils # (Auto) 9.4 H 1.6-8.6 10 ^3/uL Lymphocytes # (Auto) 1.5 0.4-5.4 10 ^3/uL Monocytes # (Auto) 1.6 H 0-1.3 10 ^3/uL Eosinophils # (Auto) 0 0-0.8 10 ^3/uL Basophils # (Auto) 0 0-0.2 10 ^3/uL Nucleated Red Blood Cells 0.0 % Sodium Level 130 L 136-145 mmol/L Potassium Level 3.9 3.5-5.1 mmol/L Chloride Level 98 98-107 mmol/L Carbon Dioxide Level 24 20-31 mmol/L Anion Gap 8 5-15 Blood Urea Nitrogen 15 9-23 mg/dL Creatinine 0.68 L 0.700-1.30 mg/dL Glomerular Filtration Rate Calc 109 >90 mL/min BUN/Creatinine Ratio 22.1 H 10.0-20.0 Serum Glucose 127 H 74-106 mg/dL Calcium Level 8.1 L 8.7-10.4 mg/dL Total Bilirubin 0.6 0.2-1.0 mg/dL Aspartate Amino Transferase (AST) 14 13-40 U/L Alanine Aminotransferase (ALT) 13 7-40 U/L Alkaline Phosphatase 49 46-116 U/L Total Protein 6.0 5.7-8.2 g/dL Albumin 3.0 L 3.2-4.8 g/dL Urine Color Light-yellow Yellow Urine Clarity Clear Clear Urine pH 5.5 5.0-9.0 Urine Specific [place] 1.015 1.001-1.035 Urine Protein Negative Negative Urine Ketones Negative Negative Urine Blood Trace H Negative /uL Urine Nitrite Negative Negative Urine Bilirubin Negative Negative Urine Urobilinogen Normal Negative mg/dL Urine Leukocyte Esterase Negative Negative /uL Urine RBC 1 0 - 3 /hpf Urine Microscopic WBC 1 0-3 /HPF Urine Squamous Epithelial Cells None seen <5 /hpf Urine Bacteria None seen None Seen /hpf Urine Glucose Normal Normal mg/dL Urine Opiates Screen Neg NEGATIVE Urine Fentanyl Screen Neg NEGATIVE Urine Barbiturates Screen Neg NEGATIVE Urine Phencyclidine Screen Neg NEGATIVE Urine Amphetamines Screen Neg NEGATIVE Urine Benzodiazepines Screen Neg NEGATIVE Urine Cocaine Screen Neg NEGATIVE Urine Cannabinoids Screen Neg NEGATIVE D-Dimer, Quantitative 1.24 H 0.0-0.49 mg/L FEU Lipase 22 12-53 U/L Imaging: CT abdomen pelvis IMPRESSION: Normal appendix. No calcified gallstone identified. No evidence of bowel obstruction. No acute abdominal or pelvic abnormality is identified on this noncontrast study to explain the patient's pain. Scattered mucous plugging of the visualized lung bases. Assessment: GI bleed History of PUD with perforation Abdominal pain Syncope Plan: Discussed with Dr. Rivers - Pt will be scheduled for an EGD today 08/07/2025. Pt was informed of the risks (bleeding, infection, perforation, reaction to sedation medications and cardiopulmonary arrest) and benefit and is agreeable to undergo the procedures. Discussed plan with patient, family at bedside and RN Thank you for this consult Date of Service: Aug 07, 2025 Billing Provider: CHRISTINE MORA Common Visit Codes: CONSULT ONLY Consultation Codes: [id number] CONSULT <60MIN CHRISTINE MORA Aug 07, 2025 13:06
[2025-08-07 13:33] LABS: Hematocrit 21.7 % (41.0-53.0); Hemoglobin 7.4 g/dL (13.5-17.5); Mean Corpuscular Hemoglobin 29.6 pg (28.0-32.0); Mean Corpuscular Volume 87.4 fL (80.0-100.0); Nucleated Red Blood Cells % 0.0 %
[2025-08-07 13:47] LABS: INR 0.97 (0.9-1.15); Prothrombin Time 10.3 sec (9.3-11.8)
[2025-08-07] MEDS ORDERED: LIDOCAINE VISCOUS 2% 15ML UD ONE (14:48)
[2025-08-07] MEDS ORDERED: MIDAZOLAM HCL 2MG/2ML 2ml VIAL (1mg/ml) ONE (14:50)
[2025-08-07] MEDS ORDERED: PROPOFOL 10 MG/ML 20 ML IV ONE (14:55)
--- NOTE | 2025-08-07 15:00 | DVHOP2 ---
Operative Report DATE OF OPERATION: 08/07/25 PROCEDURE: Upper Endoscopy with biopsy. PREOPERATIVE INDICATION: The patient is a 55 -year-old male undergoing endoscopy for abnormal finding GI tract imaging epigastric pain POSTOPERATIVE DIAGNOSES: 1. [id number] gastroduodenitis with pre-pyloric antral gastric erosions and superficial duodenal erosions and ulcers in the duodenal bulb 2. Slightly irregular squamocolumnar junction otherwise normal examination up to the 2nd and 3rd part of the duodenaum with no active bleeding no fresh or old blood in the upper GI tract PROCEDURE PERFORMED BY: Iraj Rivers GI NURSE: Dimitris SCOPE: Olympus videoendoscope. ASA CLASS: 3 PREOPERATIVE MEDICATIONS: Mac sedation, Dr. Robison PROCEDURE IN DETAIL: After obtaining an informed consent, the patient was placed on left lateral decubitus position. The patient was then sedated with the above medications. A bite block was placed between his teeth. The endoscope was then passed through the oropharynx, into the esophagus, and through the stomach and pylorus up to the second and third part of the duodenum. The endoscope was then withdrawn. The 2nd and 3rd part of the duodenum were normal. The duodenal bulb and postbulbar area showed duodenitis with superficial erosions and tiny ulcers The pre-pyloric area antrum and body showed mild gastritis with pre-pyloric antral gastric erosions. Duodenal and gastric biopsies were obtained. On retroflexion the fundus cardia and angularis were normal. The endoscope was then withdrawn into the distal esophagus Patient had a slightly irregular squamocolumnar junction but no significant hiatal hernia and no esophagitis The remaining distal and proximal esophagus and oropharynx were unremarkable The patient tolerated the procedure well without difficulty. COMPLICATIONS : None SPECIMENS: Duodenal biopsies Gastric biopsies DISPOSITION: Transfer back to the floor Stable PLAN: 1. Await for biopsy result 2. Will place pt on Protonix 40 mg bid p.o. 3. Carafate 1 g p.o. 4 times a day 4. Resume full liquid diet advance to soft mechanical 5. Outpatient follow up with GI Services to discuss elective colonoscopy once medically stabilized IRAJ RIVERS MD Aug 07, 2025 15:00
[2025-08-07] MEDS: SUCRALFATE 1 GM/10 ML ORAL SUSP PO SCH (21:19)
[2025-08-07] MEDS: HYDROcodone-ACET 10/325MG TAB PO PRN (23:34)
[2025-08-08] VITALS (9 sets, daily range): BP systolic 86–106; BP diastolic 48–61; PULSE 61–79; RESP 16–18; TEMP 97.7–98.5; O2SAT 92–98
[2025-08-08] MEDS: IRON SUCROSE COMPLEX 110 ML IV SCH (12:59)
--- NOTE | 2025-08-08 18:52 | DVHPN2 ---
Progress Note - Dictate Date Seen: Aug 08, 2025 Medical Necessity Reason Pt with a Central, PICC or Fol: No vital signs Vital Sign Date Time Temp Pulse Resp B/P (MAP) Pulse Ox O2 Delivery O2 Flow Rate FiO2 08/08/25 17:00 98.1 77 18 106/60 (75) 97 98.1 08/08/25 08:15 Room Air* 0 21 Total Intake and Output 08/07/25 08/07/25 08/08/25 15:00 23:00 07:00 Intake Total 420 ml 300 ml Output Total 880 ml 700 ml Balance 420 ml -880 ml -400 ml medications Current Medications Medications Dose Ordered Sig/Adri Route Start Time Stop Time Status Last Admin Dose Admin Sodium Chloride 1,000 ml @ 60 mls/hr [id number] IV 08/06/25 20:30 08/07/25 21:42 60 MLS/HR Acetaminophen 325 mg Q4HP PRN PO 08/06/25 20:30 Ondansetron HCl 4 mg Q4HP PRN IV 08/06/25 20:30 Nitroglycerin 0.4 mg Q5MINP PRN SL 08/06/25 20:30 Pantoprazole Sodium 40 mg BID IV 08/06/25 22:00 08/08/25 10:13 40 MG Ceftriaxone Sodium 50 ml @ 100 mls/hr DAILY@09 IV 08/07/25 11:30 08/08/25 10:13 100 MLS/HR Hydromorphone HCl 0.4 mg Q4HP PRN IV 08/07/25 12:00 Sucralfate 1 gm BID@0600,2200 PO 08/07/25 22:00 08/08/25 05:45 1 GM Acetaminophen/ Hydrocodone Bitart 1 tab Q4HP PRN PO 08/07/25 23:15 08/08/25 15:20 1 TAB Iron Sucrose 110 ml @ 110 mls/hr DAILY@1200 IV 08/08/25 12:00 08/12/25 12:59 08/08/25 12:59 110 MLS/HR objective General Appearance: alert, no distress HEENT: EOMI, PERRLA, normal external inspect of ears, no icterus, no nasal drainage Neck: no carotid bruit, no jugular venous distention (JVD), no lymphadenopathy Chest: normal thorax Respiratory: clear to auscultation, normal air movement Cardiovascular: regular rate and rhythm, no diastolic murmur, no jugular venous distention (JVD), no rub, no systolic murmur Abdominal: soft, no hepatomegaly, no mass, no splenomegaly, no tenderness Genitourinary: grossly normal external Musculoskeletal: no joint tenderness, no swelling Extremities: normal pulses, no calf tenderness, no clubbing, no cyanosis, no edema Skin: no bruising, no jaundice, no rash Neurological: alert, No focal deficit laboratory and microbiology Laboratory Tests 08/07/25 13:09 08/07/25 05:00 Test 08/07/25 05:00 Range/Units Serum Glucose 127 H 74-106 mg/dL Problem List 1. Syncope Monitor 2. GI bleed Monitor, NPO, GI consult, IV fluids, transfuse if hgb < 7, PPT/INR, blood culture 3. HIV Monitor, chest XR 4. Hepatitis C Monitor 5. Chronic anticoagulation Monitor, SCD 6. Hx DVT Monitor, SCD 7. Hyponatremia Monitor 8. Leukocytosis Monitor Assessment/Plan Subjective: Patient is awake and alert. Objective: Hemoglobin dropped to 7.4. Patient is status post upper endoscopy by Dr. Rivers. Patient found to have mild to moderate gastroduodenopathy. Patient has underlying history of HIV and hepatitis C. Patient states he fell multiple times and had pain to his right foot. X-ray images of his right foot and right ankle are negative for fracture. Plan: Continue Protonix and Carafate as ordered by GI. Continue full liquid diet. Advance when cleared by GI. DC planning possibly for tomorrow. Plan discussed with: Patient, Other MICHELLE LAYTON NP Aug 08, 2025 18:52
[2025-08-08] MEDS: CALCIUM CARB 500 MG CHEW TAB PO PRN (20:10)
--- NOTE | 2025-08-08 22:11 | DVHPN2 ---
Progress Note - Dictate Date Seen: Aug 08, 2025 Medical Necessity Reason Pt with a Central, PICC or Fol: No Subjective Patient complained of some abdominal pain and leg pain requiring Vincent He is tolerating a diet without any nausea and vomiting vital signs Vital Sign Date Time Temp Pulse Resp B/P (MAP) Pulse Ox O2 Delivery O2 Flow Rate FiO2 08/08/25 21:00 97.9 79 18 99/54 (69) 92 97.9 08/08/25 08:15 Room Air* 0 21 Total Intake and Output 08/07/25 08/07/25 08/08/25 15:00 23:00 07:00 Intake Total 420 ml 300 ml Output Total 880 ml 700 ml Balance 420 ml -880 ml -400 ml medications Current Medications Medications Dose Ordered Sig/Adri Route Start Time Stop Time Status Last Admin Dose Admin Sodium Chloride 1,000 ml @ 60 mls/hr [id number] IV 08/06/25 20:30 08/08/25 19:04 60 MLS/HR Acetaminophen 325 mg Q4HP PRN PO 08/06/25 20:30 Ondansetron HCl 4 mg Q4HP PRN IV 08/06/25 20:30 Nitroglycerin 0.4 mg Q5MINP PRN SL 08/06/25 20:30 Pantoprazole Sodium 40 mg BID IV 08/06/25 22:00 08/08/25 21:12 40 MG Ceftriaxone Sodium 50 ml @ 100 mls/hr DAILY@09 IV 08/07/25 11:30 08/08/25 10:13 100 MLS/HR Hydromorphone HCl 0.4 mg Q4HP PRN IV 08/07/25 12:00 Sucralfate 1 gm BID@0600,2200 PO 08/07/25 22:00 08/08/25 21:12 1 GM Acetaminophen/ Hydrocodone Bitart 1 tab Q4HP PRN PO 08/07/25 23:15 08/08/25 20:11 1 TAB Iron Sucrose 110 ml @ 110 mls/hr DAILY@1200 IV 08/08/25 12:00 08/12/25 12:59 08/08/25 12:59 110 MLS/HR Calcium Carbonate 500 mg QIDPRN PRN PO 08/08/25 19:00 08/08/25 20:10 500 MG objective General Appearance: alert, no distress HEENT: EOMI, PERRLA, normal external inspect of ears, no icterus, no nasal drainage Neck: no carotid bruit, no jugular venous distention (JVD), no lymphadenopathy Chest: normal thorax Respiratory: clear to auscultation, normal air movement Cardiovascular: regular rate and rhythm, no diastolic murmur, no jugular venous distention (JVD), no rub, no systolic murmur Abdominal: soft, no hepatomegaly, no mass, no splenomegaly, no tenderness Genitourinary: grossly normal external Musculoskeletal: no joint tenderness, no swelling Extremities: normal pulses, no calf tenderness, no clubbing, no cyanosis, no edema Skin: no bruising, no jaundice, no rash Neurological: alert, No focal deficit laboratory and microbiology Laboratory Tests 08/07/25 13:09 08/07/25 05:00 Test 08/07/25 05:00 Range/Units Serum Glucose 127 H 74-106 mg/dL Problems(with codes): (1) Gastroduodenitis (2) Intractable abdominal pain (3) Melena (4) Methamphetamine abuse Prognosis Plan Continue Protonix and Carafate Advance to soft mechanical diet Plan discussed with: Patient IRAJ GUO MD Aug 08, 2025 22:11
[2025-08-08] MEDS: MELATONIN 5 MG TAB PO ONE (22:34)
[2025-08-09] VITALS (11 sets, daily range): BP systolic 86–102; BP diastolic 49–61; PULSE 69–89; RESP 16–18; TEMP 96.3–99.6; O2SAT 96–99
[2025-08-09] MEDS: HYDROmorphone HCL 2 MG/ML VL/or syr IV PRN (08:13)
[2025-08-09] MEDS ORDERED: SUCR1TAB31 OR (08:42)
[2025-08-09] MEDS ORDERED: PANT40TA2 PO (08:42)
[2025-08-09 10:49] LABS: Hematocrit 18.6 % (41.0-53.0); Mean Corpuscular Hemoglobin 29.5 pg (28.0-32.0); Mean Corpuscular Volume 90.2 fL (80.0-100.0); Nucleated Red Blood Cells % 0.1 %
[2025-08-09 10:54] LABS: Hemoglobin 6.1 g/dL (13.5-17.5)
--- NOTE | 2025-08-09 12:57 | DVH ---
CLINICAL INDICATION: Pain COMPARISON: XY R ANKLE 2 VIEW XRAY on DOS: 08/07/25 TECHNIQUE: Multiplanar, multisequence MRI of the right ankle was performed without intravenous contr ast. Contrast: None INTERPRETATION: Bones: There is bandlike configuration of bone marrow edema in the anterior talus. This corresponds t o bandlike low signal intensity on the T1 weighted image without a definitive fracture plane. No ev idence of marrow replacing lesion. Alignment: Unremarkable. Ligaments: The anterior talofibular ligament is torn. The posterior talofibular ligament is intact. T he calcaneofibular ligament is intact. The inferior tibiofibular ligaments are intact. The visualized portions of the deltoid and spring ligaments are intact. Tendons:The Achilles tendon is thickened with T2 hyperintensity and interstitial tear in the distal 3 rd. There is interstitial tear peroneus brevis. Peroneus longus is intact. The posterior tibialis, flexor hallucis longus and flexor digitorum longus tendons are intact. The dorsal extensor tendons are intact. Plantar Fascia: The medial cord of the plantar fascia is intact. Bursae: The retroachilles bursa is not fluid distended. The retrocalcaneal bursa is not fluid diste nded. Mass/Fluid: Large ankle joint effusion. No mass or fluid in the sinus tarsi. Muscles: There is edema in the intrinsic muscles of the ankle. Soft tissues: There is dorsal and posterior soft tissue edema in the ankle. There is fluid in the lat eral ankle. IMPRESSION: 1. Findings suspicious for focal marrow contusion in the anterior talus. A nondisplaced fracture is not entirely excluded. 2. Anterior talofibular ligament tear. 3. Large ankle joint effusion. 4. Dorsal and posterior subcutaneous edema. Fluid in the lateral ankle. 5. Tendinosis and interstitial tear of the achilles tendon. HS:Y
--- NOTE | 2025-08-09 13:03 | DVH ---
CLINICAL HISTORY: Severe pain after fall injury. TECHNIQUE: Multi sequence multi planar MRI images of the right midfoot and forefoot were obtained wi thout IV contrast. COMPARISON: Correlation made to same day MRI of the right ankle. Prior right foot radiographs dated . FINDINGS: There is mild marrow edema at the talar head and neck, possible contusion in the appropria te clinical setting. No fracture plane visualized. The rest of the osseous structures in the midfoot and forefoot are intact without other evidence for fracture or focal marrow contusion. No significant arthritic changes are seen. Moderate to large tibiotalar joint effusion. Moderate subcutaneous edema along the dorsal aspect of the foot. Flexor and extensor tendons appear intact. Normal appearance of the intrinsic musculature of the forefoot and midfoot. No significant ligamentous abnormality identi fied in the forefoot or midfoot. Minimal edema and trace fluid adjacent to the calcaneal attachment o f the plantar fascia. IMPRESSION: 1. Mild marrow edema of the talar head and neck, possible contusion in the appropriate clinical setti ng. No fracture plane visualized. Correlate with clinical findings. 2. Moderate subcutaneous edema along the dorsal aspect of the midfoot and forefoot. 3. Moderate to large tibiotalar joint effusion. 4. Additional findings as described above. 5. Refer to the separately dictated MR right ankle report for additional findings in the ankle/hindfo ot.
[2025-08-09] MEDS: LACTULOSE 20Gm/30ML SOLN PO PRN (14:34)
--- NOTE | 2025-08-09 17:42 | DVHPN2 ---
Progress Note - Dictate Date Seen: Aug 09, 2025 Medical Necessity Reason Pt with a Central, PICC or Fol: No vital signs Vital Sign Date Time Temp Pulse Resp B/P (MAP) Pulse Ox O2 Delivery O2 Flow Rate FiO2 08/09/25 17:00 99.2 76 16 86/49 (61) 97 99.2 08/09/25 08:00 Room Air* 0 21 Total Intake and Output 08/08/25 08/08/25 08/09/25 15:00 23:00 07:00 Intake Total 160 ml 1450 ml 1000 ml Output Total 400 ml 1200 ml Balance 160 ml 1050 ml -200 ml medications Current Medications Medications Dose Ordered Sig/Adri Route Start Time Stop Time Status Last Admin Dose Admin Sodium Chloride 1,000 ml @ 60 mls/hr [id number] IV 08/06/25 20:30 08/09/25 15:36 60 MLS/HR Acetaminophen 325 mg Q4HP PRN PO 08/06/25 20:30 Ondansetron HCl 4 mg Q4HP PRN IV 08/06/25 20:30 Nitroglycerin 0.4 mg Q5MINP PRN SL 08/06/25 20:30 Pantoprazole Sodium 40 mg BID IV 08/06/25 22:00 08/09/25 11:05 40 MG Ceftriaxone Sodium 50 ml @ 100 mls/hr DAILY@09 IV 08/07/25 11:30 08/09/25 08:11 100 MLS/HR Hydromorphone HCl 0.4 mg Q4HP PRN IV 08/07/25 12:00 08/09/25 15:35 0.4 MG Sucralfate 1 gm BID@0600,2200 PO 08/07/25 22:00 08/09/25 05:11 1 GM Acetaminophen/ Hydrocodone Bitart 1 tab Q4HP PRN PO 08/07/25 23:15 08/09/25 11:08 1 TAB Iron Sucrose 110 ml @ 110 mls/hr DAILY@1200 IV 08/08/25 12:00 08/12/25 12:59 08/09/25 12:16 110 MLS/HR Calcium Carbonate 500 mg QIDPRN PRN PO 08/08/25 19:00 08/08/25 20:10 500 MG Melatonin 5 mg HS PO 08/09/25 22:00 Lactulose 30 ml Q6HPRN PRN PO 08/09/25 09:00 08/09/25 14:34 30 ML objective General Appearance: alert, no distress HEENT: EOMI, PERRLA, normal external inspect of ears, no icterus, no nasal drainage Neck: no carotid bruit, no jugular venous distention (JVD), no lymphadenopathy Chest: normal thorax Respiratory: clear to auscultation, normal air movement Cardiovascular: regular rate and rhythm, no diastolic murmur, no jugular venous distention (JVD), no rub, no systolic murmur Abdominal: soft, no hepatomegaly, no mass, no splenomegaly, no tenderness Genitourinary: grossly normal external Musculoskeletal: no joint tenderness, no swelling Extremities: normal pulses, no calf tenderness, no clubbing, no cyanosis, no edema Skin: no bruising, no jaundice, no rash Neurological: alert, No focal deficit laboratory and microbiology Laboratory Tests 08/09/25 10:20 08/07/25 05:00 Test 08/07/25 05:00 Range/Units Serum Glucose 127 H 74-106 mg/dL Problem List 1. Syncope Monitor 2. GI bleed Monitor, NPO, GI consult, IV fluids, transfuse if hgb < 7, PPT/INR, blood culture 3. HIV Monitor, chest XR 4. Hepatitis C Monitor 5. Chronic anticoagulation Monitor, SCD 6. Hx DVT Monitor, SCD 7. Hyponatremia Monitor 8. Leukocytosis Monitor Assessment/Plan Subjective Patient is awake and alert. Objective Patient is somewhat pale. Patient was admitted for GI bleed. He had an upper GI done by Dr. Rivers. Patient was found to have mild to moderate gastric duodenitis. Patient was started on Protonix and Carafate. Hemoglobin dropped to 6.1 today. Plan Change diet to clear liquids. Transfuse 1 unit of blood. Continue PPI. Repeat labs ordered in a.m. continue IV iron. Plan discussed with: Patient, Other MICHELLE LAYTON FIREMAN Aug 09, 2025 17:42
[2025-08-09] MEDS: MELATONIN 5 MG TAB PO SCH (21:12)
--- NOTE | 2025-08-09 22:07 | DVHPN2 ---
Progress Note - Dictate Date Seen: Aug 09, 2025 Medical Necessity Reason Pt with a Central, PICC or Fol: No Subjective No new complaints, patient is sleeping comfortably His hemoglobin drifted down to 6.1 There was no evidence of active GI bleeding Patient has not had a bowel movement EGD had shown mild gastroduodenitis with erosions with no active bleeding Patient is reporting a negative colonoscopy a year ago Lipase and liver enzymes are normal His hepatitis-B surface antigen is positive vital signs Vital Sign Date Time Temp Pulse Resp B/P (MAP) Pulse Ox O2 Delivery O2 Flow Rate FiO2 08/09/25 21:16 98.7 77 17 97/57 98.7 08/09/25 17:00 97 08/09/25 08:00 Room Air* 0 21 Total Intake and Output 08/08/25 08/08/25 08/09/25 15:00 23:00 07:00 Intake Total 160 ml 1450 ml 1000 ml Output Total 400 ml 1200 ml Balance 160 ml 1050 ml -200 ml medications Current Medications Medications Dose Ordered Sig/Adri Route Start Time Stop Time Status Last Admin Dose Admin Sodium Chloride 1,000 ml @ 60 mls/hr [id number] IV 08/06/25 20:30 08/09/25 15:36 60 MLS/HR Acetaminophen 325 mg Q4HP PRN PO 08/06/25 20:30 Ondansetron HCl 4 mg Q4HP PRN IV 08/06/25 20:30 Nitroglycerin 0.4 mg Q5MINP PRN SL 08/06/25 20:30 Pantoprazole Sodium 40 mg BID IV 08/06/25 22:00 08/09/25 21:12 40 MG Ceftriaxone Sodium 50 ml @ 100 mls/hr DAILY@09 IV 08/07/25 11:30 08/09/25 08:11 100 MLS/HR Hydromorphone HCl 0.4 mg Q4HP PRN IV 08/07/25 12:00 08/09/25 15:35 0.4 MG Sucralfate 1 gm BID@0600,2200 PO 08/07/25 22:00 08/09/25 21:12 1 GM Acetaminophen/ Hydrocodone Bitart 1 tab Q4HP PRN PO 08/07/25 23:15 08/09/25 18:05 1 TAB Iron Sucrose 110 ml @ 110 mls/hr DAILY@1200 IV 08/08/25 12:00 08/12/25 12:59 08/09/25 12:16 110 MLS/HR Calcium Carbonate 500 mg QIDPRN PRN PO 08/08/25 19:00 08/09/25 21:17 500 MG Melatonin 5 mg HS PO 08/09/25 22:00 08/09/25 21:12 5 MG Lactulose 30 ml Q6HPRN PRN PO 08/09/25 09:00 08/09/25 14:34 30 ML objective General Appearance: alert, no distress HEENT: EOMI, PERRLA, normal external inspect of ears, no icterus, no nasal drainage Neck: no carotid bruit, no jugular venous distention (JVD), no lymphadenopathy Chest: normal thorax Respiratory: clear to auscultation, normal air movement Cardiovascular: regular rate and rhythm, no diastolic murmur, no jugular venous distention (JVD), no rub, no systolic murmur Abdominal: soft, no hepatomegaly, no mass, no splenomegaly, no tenderness Genitourinary: grossly normal external Musculoskeletal: no joint tenderness, no swelling Extremities: normal pulses, no calf tenderness, no clubbing, no cyanosis, no edema Skin: no bruising, no jaundice, no rash Neurological: alert, No focal deficit laboratory and microbiology Laboratory Tests 08/09/25 10:20 08/07/25 05:00 Test 08/07/25 05:00 Range/Units Serum Glucose 127 H 74-106 mg/dL Problems(with codes): (1) Methamphetamine abuse (2) Gastroduodenitis (3) Intractable abdominal pain (4) Melena Prognosis Plan Transfused 1 unit PRBC and if repeat hemoglobin is less than seven a 2nd unit of PRBC we will be given I will start him on IV iron Continue Protonix 40 mg IV q.12 hours Continue Carafate 1 g p.o. twice a day Review last colonoscopy report reported negative one year ago Check hepatitis-B viral DNA as an outpatient and decide about treatment for hep B as an outpatient Outpatient follow up with GI Services to review current status and management of hepatitis-B N/C Patient has a large ankle effusion and suggestion of a contusion of the talus bone on x-rays after recent injury Foot pain persists consider podiatry consult Plan discussed with: Patient, Other (Nurse) IRAJ GUO MD Aug 09, 2025 22:07
[2025-08-10] VITALS (9 sets, daily range): BP systolic 90–117; BP diastolic 50–69; PULSE 67–94; RESP 14–18; TEMP 97.1–100.3; O2SAT 94–99
[2025-08-10 00:15] LABS: Hematocrit 22.6 % (41.0-53.0); Hemoglobin 7.4 g/dL (13.5-17.5)
--- NOTE | 2025-08-10 14:17 | DVHPN2 ---
Progress Note - Dictate Date Seen: Aug 10, 2025 Medical Necessity Reason Pt with a Central, PICC or Fol: No vital signs Vital Sign Date Time Temp Pulse Resp B/P (MAP) Pulse Ox O2 Delivery O2 Flow Rate FiO2 08/10/25 12:30 98.1 67 18 90/50 (63) 94 98.1 08/10/25 08:00 Room Air* 0 21 Total Intake and Output 08/09/25 08/09/25 08/10/25 15:00 23:00 07:00 Intake Total 760 ml 1500 ml 820 ml Output Total 600 ml 1090 ml Balance 760 ml 900 ml -270 ml medications Current Medications Medications Dose Ordered Sig/Adri Route Start Time Stop Time Status Last Admin Dose Admin Sodium Chloride 1,000 ml @ 60 mls/hr [id number] IV 08/06/25 20:30 08/10/25 08:16 60 MLS/HR Acetaminophen 325 mg Q4HP PRN PO 08/06/25 20:30 Ondansetron HCl 4 mg Q4HP PRN IV 08/06/25 20:30 Nitroglycerin 0.4 mg Q5MINP PRN SL 08/06/25 20:30 Pantoprazole Sodium 40 mg BID IV 08/06/25 22:00 08/10/25 09:42 40 MG Ceftriaxone Sodium 50 ml @ 100 mls/hr DAILY@09 IV 08/07/25 11:30 08/10/25 09:43 100 MLS/HR Hydromorphone HCl 0.4 mg Q4HP PRN IV 08/07/25 12:00 08/10/25 10:39 0.4 MG Sucralfate 1 gm BID@0600,2200 PO 08/07/25 22:00 08/10/25 06:25 1 GM Acetaminophen/ Hydrocodone Bitart 1 tab Q4HP PRN PO 08/07/25 23:15 08/10/25 12:22 1 TAB Iron Sucrose 110 ml @ 110 mls/hr DAILY@1200 IV 08/08/25 12:00 08/12/25 12:59 08/10/25 11:39 110 MLS/HR Calcium Carbonate 500 mg QIDPRN PRN PO 08/08/25 19:00 08/09/25 21:17 500 MG Melatonin 5 mg HS PO 08/09/25 22:00 08/09/25 21:12 5 MG Lactulose 30 ml Q6HPRN PRN PO 08/09/25 09:00 08/09/25 14:34 30 ML objective General Appearance: alert, no distress HEENT: EOMI, PERRLA, normal external inspect of ears, no icterus, no nasal drainage Neck: no carotid bruit, no jugular venous distention (JVD), no lymphadenopathy Chest: normal thorax Respiratory: clear to auscultation, normal air movement Cardiovascular: regular rate and rhythm, no diastolic murmur, no jugular venous distention (JVD), no rub, no systolic murmur Abdominal: soft, no hepatomegaly, no mass, no splenomegaly, no tenderness Genitourinary: grossly normal external Musculoskeletal: no joint tenderness, no swelling Extremities: normal pulses, no calf tenderness, no clubbing, no cyanosis, no edema Skin: no bruising, no jaundice, no rash Neurological: alert, No focal deficit laboratory and microbiology Laboratory Tests 08/10/25 00:01 08/09/25 10:20 08/07/25 05:00 Test 08/07/25 05:00 Range/Units Serum Glucose 127 H 74-106 mg/dL Problem List 1. Syncope Monitor 2. GI bleed Monitor, NPO, GI consult, IV fluids, transfuse if hgb < 7, PPT/INR, blood culture 3. HIV Monitor, chest XR 4. Hepatitis C Monitor 5. Chronic anticoagulation Monitor, SCD 6. Hx DVT Monitor, SCD 7. Hyponatremia Monitor 8. Leukocytosis Monitor Assessment/Plan Subjective Patient is awake and alert. Objective Patient had persistent pain to his right ankle. X-ray imaging had no acute findings. MRI did show a large right tibial talar and podiatry has been consulted. Hemoglobin is 7.4. Patient has soft blood pressures. Plan Add midodrine for blood pressure support. Continue pain medications as needed. Podiatry consult for right ankle effusion. Plan discussed with: Patient, Other MICHELLE LAYTON NP Aug 10, 2025 14:17
[2025-08-10] MEDS: MIDODRINE HCL 10 MG TAB PO SCH (17:35)
[2025-08-11] VITALS (9 sets, daily range): BP systolic 92–121; BP diastolic 50–70; PULSE 88–108; RESP 14–18; TEMP 98.2–100.8; O2SAT 94–97
[2025-08-11 05:02] LABS: Hemoglobin 8.2 g/dL (13.5-17.5); Nucleated Red Blood Cells % 0.2 %
[2025-08-11 05:05] LABS: Hematocrit 23.7 % (41.0-53.0); Mean Corpuscular Hemoglobin 30.4 pg (28.0-32.0); Mean Corpuscular Volume 88.5 fL (80.0-100.0)
[2025-08-11 05:39] LABS: Anion Gap 7 (5-15); Carbon Dioxide 30 mmol/L (20-31); Chloride 100 mmol/L (98-107); Potassium 3.8 mmol/L (3.5-5.1); Sodium 137 mmol/L (136-145)
[2025-08-11 05:45] LABS: BUN/Creatinine Ratio 9.5 (10.0-20.0)
[2025-08-11 05:49] LABS: Blood Urea Nitrogen 6 mg/dL (9-23); Calcium 8.2 mg/dL (8.7-10.4); Glucose 110 mg/dL (74-106)
[2025-08-11] MEDS: BIKTARVY PO SCH (10:00)
[2025-08-11] MEDS: TENOFOVIR PO SCH (10:00)
[2025-08-11] MEDS: EMTRICITABINE PO SCH (10:00)
--- NOTE | 2025-08-11 13:31 | DVHPN2 ---
Progress Note - Dictate Date Seen: Aug 11, 2025 Medical Necessity Reason Pt with a Central, PICC or Fol: No vital signs Vital Sign Date Time Temp Pulse Resp B/P (MAP) Pulse Ox O2 Delivery O2 Flow Rate FiO2 08/11/25 10:27 95 16 105/65 08/11/25 09:00 98.5 95 98.5 08/11/25 08:00 Room Air* 0 21 Total Intake and Output 08/10/25 08/10/25 08/11/25 15:00 23:00 07:00 Intake Total 1460 ml 850 ml 2860 ml Output Total 1950 ml Balance 1460 ml 850 ml 910 ml medications Current Medications Medications Dose Ordered Sig/Adri Route Start Time Stop Time Status Last Admin Dose Admin Sodium Chloride 1,000 ml @ 60 mls/hr [id number] IV 08/06/25 20:30 08/11/25 00:53 60 MLS/HR Acetaminophen 325 mg Q4HP PRN PO 08/06/25 20:30 Ondansetron HCl 4 mg Q4HP PRN IV 08/06/25 20:30 Nitroglycerin 0.4 mg Q5MINP PRN SL 08/06/25 20:30 Pantoprazole Sodium 40 mg BID IV 08/06/25 22:00 08/11/25 09:15 40 MG Ceftriaxone Sodium 50 ml @ 100 mls/hr DAILY@09 IV 08/07/25 11:30 08/11/25 09:15 100 MLS/HR Hydromorphone HCl 0.4 mg Q4HP PRN IV 08/07/25 12:00 08/11/25 09:57 0.4 MG Sucralfate 1 gm BID@0600,2200 PO 08/07/25 22:00 08/11/25 05:15 1 GM Acetaminophen/ Hydrocodone Bitart 1 tab Q4HP PRN PO 08/07/25 23:15 08/11/25 03:37 1 TAB Iron Sucrose 110 ml @ 110 mls/hr DAILY@1200 IV 08/08/25 12:00 08/12/25 12:59 08/11/25 12:16 110 MLS/HR Calcium Carbonate 500 mg QIDPRN PRN PO 08/08/25 19:00 08/09/25 21:17 500 MG Melatonin 5 mg HS PO 08/09/25 22:00 08/10/25 21:22 5 MG Lactulose 30 ml Q6HPRN PRN PO 08/09/25 09:00 08/09/25 14:34 30 ML Midodrine 10 mg TIDWM@0600,1200,1800 PO 08/10/25 18:00 08/11/25 12:16 10 MG Patient Own Medication 1 DAILY PO 08/11/25 10:00 objective General Appearance: alert, no distress HEENT: EOMI, PERRLA, normal external inspect of ears, no icterus, no nasal drainage Neck: no carotid bruit, no jugular venous distention (JVD), no lymphadenopathy Chest: normal thorax Respiratory: clear to auscultation, normal air movement Cardiovascular: regular rate and rhythm, no diastolic murmur, no jugular venous distention (JVD), no rub, no systolic murmur Abdominal: soft, no hepatomegaly, no mass, no splenomegaly, no tenderness Genitourinary: grossly normal external Musculoskeletal: no joint tenderness, no swelling Extremities: normal pulses, no calf tenderness, no clubbing, no cyanosis, no edema Skin: no bruising, no jaundice, no rash Neurological: alert, No focal deficit laboratory and microbiology Laboratory Tests 08/11/25 04:17 Test 08/11/25 04:17 Range/Units Serum Glucose 110 H 74-106 mg/dL Problem List 1. Syncope Monitor 2. GI bleed Monitor, NPO, GI consult, IV fluids, transfuse if hgb < 7, PPT/INR, blood culture 3. HIV Monitor, chest XR 4. Hepatitis C Monitor 5. Chronic anticoagulation Monitor, SCD 6. Hx DVT Monitor, SCD 7. Hyponatremia Monitor 8. Leukocytosis Monitor Assessment/Plan Subjective Patient is awake and alert. Objective Patient was admitted for GI bleed. Patient has underlying history of hepatitis C and HIV. Patient is status post upper endoscopy. Patient had persistent complaints of right ankle pain. He states he had multiple falls. X-ray imaging had no acute findings. MRI shows a right ankle effusion. Podiatry consult for possible aspiration of fluid. Plan Monitor daily CBC. Patient is receiving IV iron. Patient is status post blood transfusion and continue iron. Continue Protonix and Carafate. DC planning in 1 to 2 days. Plan discussed with: Patient, Other MICHELLE LAYTON [employer]IGH[employer] REPAIRER Aug 11, 2025 13:31
[2025-08-11] MEDS ORDERED: BICT1TAB4 PO (13:33)
[2025-08-12] VITALS (8 sets, daily range): BP systolic 89–111; BP diastolic 43–71; PULSE 77–123; RESP 14–20; TEMP 98–98.6; O2SAT 93–100
--- NOTE | 2025-08-12 09:56 | DVHPN2 ---
Progress Note - Dictate Date Seen: Aug 12, 2025 Medical Necessity Reason Pt with a Central, PICC or Fol: No vital signs Vital Sign Date Time Temp Pulse Resp B/P (MAP) Pulse Ox O2 Delivery O2 Flow Rate FiO2 08/12/25 07:25 91 15 104/65 08/12/25 05:00 98.3 97 98.3 08/11/25 20:00 Room Air* 0 21 Total Intake and Output 08/11/25 08/11/25 08/12/25 15:00 23:00 07:00 Intake Total 160 ml 650 ml 660 ml Output Total 1000 ml Balance 160 ml -350 ml 660 ml medications Current Medications Medications Dose Ordered Sig/Adri Route Start Time Stop Time Status Last Admin Dose Admin Sodium Chloride 1,000 ml @ 60 mls/hr [id number] IV 08/06/25 20:30 08/12/25 05:24 60 MLS/HR Acetaminophen 325 mg Q4HP PRN PO 08/06/25 20:30 Ondansetron HCl 4 mg Q4HP PRN IV 08/06/25 20:30 Nitroglycerin 0.4 mg Q5MINP PRN SL 08/06/25 20:30 Pantoprazole Sodium 40 mg BID IV 08/06/25 22:00 08/12/25 08:56 40 MG Ceftriaxone Sodium 50 ml @ 100 mls/hr DAILY@09 IV 08/07/25 11:30 08/12/25 08:56 100 MLS/HR Hydromorphone HCl 0.4 mg Q4HP PRN IV 08/07/25 12:00 08/12/25 06:55 0.4 MG Sucralfate 1 gm BID@0600,2200 PO 08/07/25 22:00 08/12/25 05:23 1 GM Acetaminophen/ Hydrocodone Bitart 1 tab Q4HP PRN PO 08/07/25 23:15 08/12/25 08:57 1 TAB Iron Sucrose 110 ml @ 110 mls/hr DAILY@1200 IV 08/08/25 12:00 08/12/25 12:59 08/11/25 12:16 110 MLS/HR Calcium Carbonate 500 mg QIDPRN PRN PO 08/08/25 19:00 08/09/25 21:17 500 MG Melatonin 5 mg HS PO 08/09/25 22:00 08/11/25 21:43 5 MG Lactulose 30 ml Q6HPRN PRN PO 08/09/25 09:00 08/09/25 14:34 30 ML Midodrine 10 mg TIDWM@0600,1200,1800 PO 08/10/25 18:00 08/12/25 05:23 10 MG Patient Own Medication 1 DAILY PO 08/11/25 10:00 objective General Appearance: alert, no distress HEENT: EOMI, PERRLA, normal external inspect of ears, no icterus, no nasal drainage Neck: no carotid bruit, no jugular venous distention (JVD), no lymphadenopathy Chest: normal thorax Respiratory: clear to auscultation, normal air movement Cardiovascular: regular rate and rhythm, no diastolic murmur, no jugular venous distention (JVD), no rub, no systolic murmur Abdominal: soft, no hepatomegaly, no mass, no splenomegaly, no tenderness Genitourinary: grossly normal external Musculoskeletal: no joint tenderness, no swelling Extremities: normal pulses, no calf tenderness, no clubbing, no cyanosis, no edema Skin: no bruising, no jaundice, no rash Neurological: alert, No focal deficit laboratory and microbiology Laboratory Tests 08/11/25 04:17 Test 08/11/25 04:17 Range/Units Serum Glucose 110 H 74-106 mg/dL Problem List 1. Syncope Monitor 2. GI bleed Monitor, NPO, GI consult, IV fluids, transfuse if hgb < 7, PPT/INR, blood culture 3. HIV Monitor, chest XR 4. Hepatitis C Monitor 5. Chronic anticoagulation Monitor, SCD 6. Hx DVT Monitor, SCD 7. Hyponatremia Monitor 8. Leukocytosis Monitor Assessment/Plan Subjective: Patient is awake and alert. Objective: Patients hemoglobin is stable. He was admitted for a GI bleed and is awaiting podiatry evaluation for an effusion to his right foot. Plan: Continue current treatment and antibiotics. Await podiatry evaluation. Discharge planning possibly for tomorrow. Plan discussed with: Patient, Other MICHELLE LAYTON FINISH PRODUCTION MANAGER Aug 12, 2025 09:56
--- NOTE | 2025-08-12 16:00 | DVHPN2 ---
Progress Note Date Seen: Aug 12, 2025 Resident Creating Document: ЕЛЕНА ROJAS RESIDENT Medical Necessity Reason Pt with a Central, PICC or Fol: No Subjective Review of Systems Patient seen and examined with the bedside Reports of mild diffuse abdominal pain, last bowel movement reported today Tolerating diet well Objective vital signs Vital Sign Date Time Temp Pulse Resp B/P (MAP) Pulse Ox O2 Delivery O2 Flow Rate FiO2 08/12/25 13:00 98.1 101 20 105/71 (82) 99 98.1 08/11/25 20:00 Room Air* 0 21 Total Intake and Output 08/11/25 08/11/25 08/12/25 15:00 23:00 07:00 Intake Total 160 ml 650 ml 660 ml Output Total 1000 ml Balance 160 ml -350 ml 660 ml medications Current Medications Medications Dose Ordered Sig/Adri Route Start Time Stop Time Status Last Admin Dose Admin Sodium Chloride 1,000 ml @ 60 mls/hr [id number] IV 08/06/25 20:30 08/12/25 05:24 60 MLS/HR Acetaminophen 325 mg Q4HP PRN PO 08/06/25 20:30 Ondansetron HCl 4 mg Q4HP PRN IV 08/06/25 20:30 Nitroglycerin 0.4 mg Q5MINP PRN SL 08/06/25 20:30 Pantoprazole Sodium 40 mg BID IV 08/06/25 22:00 08/12/25 08:56 40 MG Ceftriaxone Sodium 50 ml @ 100 mls/hr DAILY@09 IV 08/07/25 11:30 08/12/25 08:56 100 MLS/HR Hydromorphone HCl 0.4 mg Q4HP PRN IV 08/07/25 12:00 08/12/25 06:55 0.4 MG Sucralfate 1 gm BID@0600,2200 PO 08/07/25 22:00 08/12/25 05:23 1 GM Acetaminophen/ Hydrocodone Bitart 1 tab Q4HP PRN PO 08/07/25 23:15 08/12/25 08:57 1 TAB Calcium Carbonate 500 mg QIDPRN PRN PO 08/08/25 19:00 08/09/25 21:17 500 MG Melatonin 5 mg HS PO 08/09/25 22:00 08/11/25 21:43 5 MG Lactulose 30 ml Q6HPRN PRN PO 08/09/25 09:00 08/09/25 14:34 30 ML Midodrine 10 mg TIDWM@0600,1200,1800 PO 08/10/25 18:00 08/12/25 12:11 10 MG Patient Own Medication 1 DAILY PO 08/11/25 10:00 Examination Gen - no pallor, no scleral icterus Skin - Patients skin is warm and dry. HEENT - normocephalic, atraumatic, dry mucous membranes. Neck - supple, no lymphadenopathy Pulmonary - B/L equal air entry with vesicular breath sounds cardiovascular - regular S1,S2 heard GI - soft, nontender abdomen. Bowel sounds normoactive. Neurological - Patient alert and oriented x4. No motor or sensory weakness laboratory and microbiology Laboratory Tests 08/11/25 04:17 Test 08/11/25 04:17 Range/Units Serum Glucose 110 H 74-106 mg/dL Microbiology Date/Time Source Procedure Growth Status 08/07/25 13:30 Blood Blood Culture - Final NO GROWTH AFTER 5 DAYS OF INCUBATION. Complete Problem List/Assessment/Plan Problem List/Assessment/Plan Assessment Status post upper endoscopy with biopsy Hmtd-jj-[id number] gastroduodenitis with pre-pyloric antral gastric erosions Melena History of HIV Hepatitis-B Plan - monitor H&H - continue Protonix b.i.d. - Carafate q.i.d. - diet advanced to soft mechanical - patient will need outpatient follow up for hepatitis-B management rest of the management as per primary team Plan discussed with Dr. Rivers Plan discussed with: Patient, Other (MIKE Jones) Dietary Evaluation Review Comments: Monitor PO intake, lab values, weight trend, and I/O Expected Outcomes/Goals: GI symptoms to improve Lab values to improve Fu 3-5 days ЕЛЕНА ROJAS RESIDENT Aug 12, 2025 16:00
[2025-08-12] MEDS: SUCRALFATE 1 GM/10 ML ORAL SUSP PO SCH (18:52)
[2025-08-12] MEDS: ONDANSETRON HCL 4 MG/2 ML VIAL IV PRN (20:26)
[2025-08-13 00:55] VITALS: BP 93/57; PULSE 110; RESP 18; TEMP 98.4; O2SAT 95
[2025-08-13] MEDS: ACETAMINOPHEN 325 MG TAB PO PRN (04:15)
[2025-08-13 05:00] VITALS: BP 89/45; PULSE 107; RESP 18; TEMP 98.2; O2SAT 98
[2025-08-13 08:00] VITALS: PULSE 89
[2025-08-13 09:00] VITALS: BP 119/72; PULSE 99; RESP 18; TEMP 99.3; O2SAT 100
--- NOTE | 2025-08-13 12:18 | DVHCONRES ---
Date Seen: Aug 13, 2025 Reason for Consultation Right ankle pain History of Present Illness 55 yo male patient with hx of DVT on Eliquis , HIV, Hepatitis C c/o abdominal pain x 5 days with associated coffee ground like melena x 2 days. Patient report shaving 3 syncopal episodes since bowel changes started. Patient has stopped hsi eliquis for 2 days. Past Medical History See H&P Past Surgical History See H&P Allergies: Coded Allergies: NO KNOWN ALLERGIES (Unverified , 08/05/25) Home Meds Active Scripts Glcepuzomub-Txkftqakzvtzi-Jnvx (Biktarvy 30-120-15 mg) 1 Tab Tab, 1 TAB PO DAILY for 90 Days, #90 TAB Prov:MICHELLE LAYTON Herb CHAIN CARRIER 08/11/25 Sucralfate (CARAFATE) 1 Gm Tab, 1 GM OR QID for 30 Days, #120 TAB Prov:MICHELLE LAYTON Herb CHAIN [employer]RIER 08/09/25 Pantoprazole Sodium Sesquihydr (Protonix) 40 Mg Tab, 40 MG PO DAILY, #30 TAB Prov:MICHELLE LAYTON Herb CH[employer]ER 08/09/25 Current Medications Current Medications Medications (Trade) Dose Ordered Sig/Adri Route PRN Reason Start Time Stop Time Status Last Admin Sucralfate (Carafate Susp) 1 gm QID PO 08/12/25 18:00 08/13/25 11:19 Vital Signs Vital Signs Date Time Temp Pulse Resp B/P (MAP) Pulse Ox O2 Delivery O2 Flow Rate FiO2 08/13/25 09:00 99.3 99 18 119/72 (88) 100 99.3 08/13/25 08:00 Room Air* 0 21 Physical Exam Dermatological: Skin is dry with mild erythema and some maceration around the wound site No gross deformities noted Mild non-pitting edema present bilaterally Right ankle redness and swelling Vascular: Dorsalis pedis and posterior tibial pulses are 1+ bilaterally Capillary refill is under 2 seconds Skin temperature is warm bilaterally Neurologic: Protective sensation is absent on the plantar forefoot bilaterally Monofilament testing reveals decreased sensation in multiple plantar sites Musculoskeletal: Range of motion at the ankle and MTP joints is within normal limits. Strength is 5/5 in all tested muscle groups. Gait is antalgic due to offloading of the affected limb. Labs/Diagnostic Data Labs Test 08/11/25 04:17 08/09/25 10:20 08/07/25 13:09 08/07/25 05:00 Range/Units White Blood Count 11.1 H 4.4-10.8 10^3/uL Red Blood Count 2.68 L 4.5-5.90 10^6/uL Hemoglobin 8.2 L 13.5-17.5 g/dL Hematocrit 23.7 L 41.0-53.0 % Mean Corpuscular Volume 88.5 80.0-100.0 fL Mean Corpuscular Hemoglobin 30.4 28.0-32.0 pg Mean Corpuscular Hemoglobin Concent 34.4 32.0-36.0 g/dL Red Cell Distribution Width 15.9 H 11.8-14.3 % Platelet Count 492 #H 140-450 10^3/uL Mean Platelet Volume 6.8 L 6.9-10.8 fL Neutrophils (%) (Auto) 68.0 37.0-80.0 % Lymphocytes (%) (Auto) 19.2 10.0-50.0 % Monocytes (%) (Auto) 12.0 0.0-12.0 % Eosinophils (%) (Auto) 0.7 0.0-7.0 % Basophils (%) (Auto) 0.1 0.0-2.0 % Neutrophils # (Auto) 7.5 1.6-8.6 10 ^3/uL Lymphocytes # (Auto) 2.1 0.4-5.4 10 ^3/uL Monocytes # (Auto) 1.3 0-1.3 10 ^3/uL Eosinophils # (Auto) 0.1 0-0.8 10 ^3/uL Basophils # (Auto) 0 0-0.2 10 ^3/uL Nucleated Red Blood Cells 0.2 % Sodium Level 137 # 136-145 mmol/L Potassium Level 3.8 3.5-5.1 mmol/L Chloride Level 100 98-107 mmol/L Carbon Dioxide Level 30 20-31 mmol/L Anion Gap 7 5-15 Blood Urea Nitrogen 6 L 9-23 mg/dL Creatinine 0.63 L 0.700-1.30 mg/dL Glomerular Filtration Rate Calc 112 >90 mL/min BUN/Creatinine Ratio 9.5 L 10.0-20.0 Serum Glucose 110 H 74-106 mg/dL Calcium Level 8.2 L 8.7-10.4 mg/dL Hepatitis B Surface Antigen Positive H Negative Prothrombin Time 10.3 9.3-11.8 sec Prothrombin Time INR 0.97 0.9-1.15 Total Bilirubin 0.6 0.2-1.0 mg/dL Aspartate Amino Transferase (AST) 14 13-40 U/L Alanine Aminotransferase (ALT) 13 7-40 U/L Alkaline Phosphatase 49 46-116 U/L Total Protein 6.0 5.7-8.2 g/dL Albumin 3.0 L 3.2-4.8 g/dL Test 08/07/25 02:30 08/06/25 17:23 Range/Units Urine Color Light-yellow Yellow Urine Clarity Clear Clear Urine pH 5.5 5.0-9.0 Urine Specific [place] 1.015 1.001-1.035 Urine Protein Negative Negative Urine Ketones Negative Negative Urine Blood Trace H Negative /uL Urine Nitrite Negative Negative Urine Bilirubin Negative Negative Urine Urobilinogen Normal Negative mg/dL Urine Leukocyte Esterase Negative Negative /uL Urine RBC 1 0 - 3 /hpf Urine Microscopic WBC 1 0-3 /HPF Urine Squamous Epithelial Cells None seen <5 /hpf Urine Bacteria None seen None Seen /hpf Urine Glucose Normal Normal mg/dL Urine Opiates Screen Neg NEGATIVE Urine Fentanyl Screen Neg NEGATIVE Urine Barbiturates Screen Neg NEGATIVE Urine Phencyclidine Screen Neg NEGATIVE Urine Amphetamines Screen Neg NEGATIVE Urine Benzodiazepines Screen Neg NEGATIVE Urine Cocaine Screen Neg NEGATIVE Urine Cannabinoids Screen Neg NEGATIVE D-Dimer, Quantitative 1.24 H 0.0-0.49 mg/L FEU Lipase 22 12-53 U/L Microbiology Date/Time Source Procedure Growth Status 08/07/25 13:30 Blood Blood Culture - Final NO GROWTH AFTER 5 DAYS OF INCUBATION. Complete Problems(with codes): (1) Acute chest pain (2) Melena (3) Peptic ulcer with perforation and obstruction (4) Intractable abdominal pain (5) Gastroduodenitis (6) Methamphetamine abuse Plan/Recommendation ASSESSMENT: Patient is a 55-year-old seen for worsening right ankle pain PLAN: - The patients chart was reviewed, clinical findings were discussed with the patient, the etiologies of the conditions were discussed in detail, and a treatment plan was agreed to at this time, with both oral and written instructions provided. - reviewed advanced imaging - no surgical intervention recommended at this point - recommend 2 weeks of p.o. antibiotics for some redness around his ankle and swelling - we will place him into a cam boot - follow up with me after discharge All questions were answered and concerns addressed to the patient's satisfaction. The patient was given the phone number to the clinic and was told how to make contact with the clinic should any concerns or questions arise. Patient understands that if any questions or concerns arise prior to the next appointment, we should be contacted immediately. FOLLOW-UP: Continue to follow while inpatient Plan discussed with: Patient Visit Coding Podiatry Date of Service if different f: Aug 13, 2025 Billing Provider: LUISANA FRANK DPM Podiatry Common Visit Codes: CONSULT ONLY Podiatry Consult Codes: 74663-ND/OBS CONSLTJ NEW/EST HI 80 LUISANA FRANK DPM Aug 13, 2025 12:18
[2025-08-13] MEDS ORDERED: AUG875T PO (14:44)
[2025-08-13] MEDS ORDERED: HYDR-4798 PO (14:44)
[2025-08-13] MEDS ORDERED: FERR200T3 PO (14:45)
--- NOTE | 2025-08-13 14:47 | DVHDS2 ---
Discharge Summary Date of Admission Aug 06, 2025 at 20:28 Date of Discharge: Aug 13, 2025 Labs/Diagnostic Data: Laboratory Results Test 08/11/25 04:17 08/09/25 10:20 08/07/25 13:09 08/07/25 05:00 White Blood Count 11.1 10^3/uL (4.4-10.8) Red Blood Count 2.68 10^6/uL (4.5-5.90) Hemoglobin 8.2 g/dL (13.5-17.5) Hematocrit 23.7 % (41.0-53.0) Mean Corpuscular Volume 88.5 fL (80.0-100.0) Mean Corpuscular Hemoglobin 30.4 pg (28.0-32.0) Mean Corpuscular Hemoglobin Concent 34.4 g/dL (32.0-36.0) Red Cell Distribution Width 15.9 % (11.8-14.3) Platelet Count 492 10^3/uL (140-450) Mean Platelet Volume 6.8 fL (6.9-10.8) Neutrophils (%) (Auto) 68.0 % (37.0-80.0) Lymphocytes (%) (Auto) 19.2 % (10.0-50.0) Monocytes (%) (Auto) 12.0 % (0.0-12.0) Eosinophils (%) (Auto) 0.7 % (0.0-7.0) Basophils (%) (Auto) 0.1 % (0.0-2.0) Neutrophils # (Auto) 7.5 10 ^3/uL (1.6-8.6) Lymphocytes # (Auto) 2.1 10 ^3/uL (0.4-5.4) Monocytes # (Auto) 1.3 10 ^3/uL (0-1.3) Eosinophils # (Auto) 0.1 10 ^3/uL (0-0.8) Basophils # (Auto) 0 10 ^3/uL (0-0.2) Nucleated Red Blood Cells 0.2 % Sodium Level 137 mmol/L (136-145) Potassium Level 3.8 mmol/L (3.5-5.1) Chloride Level 100 mmol/L (98-107) Carbon Dioxide Level 30 mmol/L (20-31) Anion Gap 7 (5-15) Blood Urea Nitrogen 6 mg/dL (9-23) Creatinine 0.63 mg/dL (0.700-1.30) Glomerular Filtration Rate Calc 112 mL/min (>90) BUN/Creatinine Ratio 9.5 (10.0-20.0) Serum Glucose 110 mg/dL (74-106) Calcium Level 8.2 mg/dL (8.7-10.4) Hepatitis B Surface Antigen Positive (Negative) Prothrombin Time 10.3 sec (9.3-11.8) Prothrombin Time INR 0.97 (0.9-1.15) Total Bilirubin 0.6 mg/dL (0.2-1.0) Aspartate Amino Transferase (AST) 14 U/L (13-40) Alanine Aminotransferase (ALT) 13 U/L (7-40) Alkaline Phosphatase 49 U/L (46-116) Total Protein 6.0 g/dL (5.7-8.2) Albumin 3.0 g/dL (3.2-4.8) Test 08/07/25 02:30 08/06/25 17:23 Urine Color Light-yellow (Yellow) Urine Clarity Clear (Clear) Urine pH 5.5 (5.0-9.0) Urine Specific [place] 1.015 (1.001-1.035) Urine Protein Negative (Negative) Urine Ketones Negative (Negative) Urine Blood Trace /uL (Negative) Urine Nitrite Negative (Negative) Urine Bilirubin Negative (Negative) Urine Urobilinogen Normal mg/dL (Negative) Urine Leukocyte Esterase Negative /uL (Negative) Urine RBC 1 /hpf (0 - 3) Urine Microscopic WBC 1 /HPF (0-3) Urine Squamous Epithelial Cells None seen /hpf (<5) Urine Bacteria None seen /hpf (None Seen) Urine Glucose Normal mg/dL (Normal) Urine Opiates Screen Neg (NEGATIVE) Urine Fentanyl Screen Neg (NEGATIVE) Urine Barbiturates Screen Neg (NEGATIVE) Urine Phencyclidine Screen Neg (NEGATIVE) Urine Amphetamines Screen Neg (NEGATIVE) Urine Benzodiazepines Screen Neg (NEGATIVE) Urine Cocaine Screen Neg (NEGATIVE) Urine Cannabinoids Screen Neg (NEGATIVE) D-Dimer, Quantitative 1.24 mg/L FEU (0.0-0.49) Lipase 22 U/L (12-53) Other Laboratory Tests 08/11/25 04:17 Brief Hx & Hospital Course: 55 yo male patient with hx of DVT on Eliquis , HIV, Hepatitis C c/o abdominal pain x 5 days with associated coffee ground like melena x 2 days. Patient report shaving 3 syncopal episodes since bowel changes started. Patient has stopped hsi eliquis for 2 days. Patient was admitted on August 06, 2025 for symptoms of rectal bleeding. Patient was diagnosed with a GI bleed. He does have underlying history of HIV and hepatitis C. Patient also was positive for methamphetamines. Patient seen by gastroenterology. He is status post EGD. Patient found to have mild to moderate gastritis and duodenitis. He was started on Protonix and Carafate. Patient had complaints of right foot and ankle pain, he states he was having multiple falls. X-ray imaging had no acute findings. MRI imaging did show some evidence of cellulitis. Patient was seen by podiatry mom he was found to have a joint effusion. Per podiatry no need for any type of surgical intervention at this time. Patient will continue oral antibiotics outpatient for additional 2 weeks. Patient was instructed to follow-up with her PCP in 1 week and to follow-up with outpatient with Dr. Apple. Patient did receive 7 of the blood for GI bleed. He also received IV iron transfusions. Hemoglobin was 8.2 at the time of discharge. He was given prescriptions for Protonix Carafate and iron and he was given Augmentin for antibiotics and I did refill his HIV medication for him. The patient received proper medical treatment and medications. Vital signs, Imaging and Laboratory Work was monitored daily. All consults recommendations were followed as provided. There were no complaints or new complaints upon discharge, all questions and concerns were answered. Patient was advised to return to the ER or call 911 if any headaches, dizziness, shortness of breath, chest pain, bleeding, fevers, or worsening of medical condition. Patient/Family was counseled about treatment plan, medications, possible side effects, patient verbalized understanding. All questions were answered to the best of my ability. The patient symptoms improved and they are okay to be DC. Condition at Discharge: Stable Final Diagnosis/Problems List GI bleed HIV Hep C Methamphetamine abuse Swelling, cellulitis to right foot- Wasplaced in CAM boot f/u outpt wit Dr. Garcia Discharge Disposition: Home Discharge Instruct/Medications Diet: Regular Activity: No Restrictions, As Tolerated Follow Up/Referral: pcp 1 week f/u GI outpt colonoscopy Scheduled Amoxicillin & Pot Clavulanate (Augmentin Tablet), 875 MG PO BID Eerxyoxenbh-Ellqtpnvacqbm-Vasv (Biktarvy 30-120-15 mg), 1 TAB PO DAILY Ferrous Sulfate Dried (Feosol), 200 MG PO BID Pantoprazole Sodium Sesquihydr (Protonix), 40 MG PO DAILY Sucralfate (Carafate), 1 GM OR QID Scheduled PRN Hydrocodone-Acetaminophen (Hydrocodone Bitartrate/AC 10-325 mg), 1 TAB PO Q8HPRN PRN Discharge Statement: "Patient was advised to return to the ER or call 911 if any headaches, dizziness, shortness of breath, chest pain, abdominal pain, bleeding, fevers, or worsening of medical condition. Patient was counseled about treatment plan, medications, possible side effects, patientverbalized understanding. All questions were answered to the best of my ability. This discharge took greater then 30 minutes in planning, reviewing documentation, counseling the patient, and discussing with other team members." ASSESSMENT ASSESSMENT Assessment GI bleed HIV Hep C Methamphetamine abuse Swelling, cellulitis to right foot- Wasplaced in CAM boot f/u outpt wit MICHELLE Grayson NP Aug 13, 2025 14:47
[2025-08-13 14:51] VITALS: BP 110/70; PULSE 98; RESP 19
== END 2025-08-13 17:09 | disposition home or self-care (01) | DRG 241 ==
LOC: EDBD 16:35 → ER 16:35 → OVERFLOW 20:28 → TELE-EAST 08-07 14:11
PROVIDERS: ADMIT Internal Medicine; ATTEND Internal Medicine
PROC: 0DB68ZX Excision of Stomach, Via Natural or Artificial Opening Endoscopic, Diagnostic (ICD-10-PCS; 2025-08-07)
PROC: 0DB98ZX Excision of Duodenum, Via Natural or Artificial Opening Endoscopic, Diagnostic (ICD-10-PCS; principal; 2025-08-07 14:46)
PROC: 30233N1 Transfusion of Nonautologous Red Blood Cells into Peripheral Vein, Percutaneous Approach (ICD-10-PCS; 2025-08-09)
DX: K25.4 Chronic or unspecified gastric ulcer with hemorrhage (principal); B19.10 Unspecified viral hepatitis B without hepatic coma; I50.9 Heart failure, unspecified; K29.71 Gastritis, unspecified, with bleeding; E87.1 Hypo-osmolality and hyponatremia; L03.115 Cellulitis of right lower limb; K26.4 Chronic or unspecified duodenal ulcer with hemorrhage; K29.91 Gastroduodenitis, unspecified, with bleeding; B19.20 Unspecified viral hepatitis C without hepatic coma; D72.829 Elevated white blood cell count, unspecified; F17.210 Nicotine dependence, cigarettes, uncomplicated; F15.10 Other stimulant abuse, uncomplicated; Z86.718 Personal history of other venous thrombosis and embolism; Z79.01 Long term (current) use of anticoagulants; R65.10 Systemic inflammatory response syndrome (SIRS) of non-infectious origin without acute organ dysfunction
CPT/HCPCS: 36415; 36430; 71045; 73600; 73630; 73718; 73721; 74176; 80048; 80053; 80307; 81001; 83690; 85014; 85018; 85025; 85379; 85610; 86850; 86900; 86901; 86920; 87040; 87340; 93005; 96361; 96374; 96375; G0378; J1100; J1756; J2250; J2405; J2470; J2704